=== PATIENT | female | born 1930 | race Caucasian/White ===

== ENCOUNTER 2016-10-04 12:44 | Inpatient (IN) ==
--- NOTE | 2016-10-04 13:10 | Emergency Department Note ---
SOB HPI - General Chief Complaint: Shortness of Breath/Dyspnea Stated Complaint: Shortness of breath, Tremors Time Seen by Provider: 10/04/16 12:56 Source: patient, other Mode of arrival: wheelchair Limitations: physical limitation, other - History of Present Illness This patient feels short of breath and hurts all over. Her Parkinson's also is a little bit more active than usual. - Related Data Home Medications Medication Instructions Recorded Confirmed Aspirin [Adult Low Dose Aspirin EC] 81 mg PO DAILY 03/05/15 06/24/16 Atenolol [Tenormin] 25 mg PO DAILY 03/05/15 06/24/16 Carbidopa/Levodopa [Sinemet 2 tab PO TID 03/05/15 06/24/16 25100] Co Q-10 300 mg PO DAILY 03/05/15 03/05/15 Gabapentin [Neurontin] 600 mg PO TID 03/05/15 06/24/16 Losartan [Cozaar] 50 mg PO DAILY 03/05/15 06/24/16 Primidone [Mysoline] 100 mg PO BID 03/05/15 06/24/16 rOPINIRole [Requip] 0.25 mg PO TID 03/05/15 06/24/16 Omeprazole 20 mg PO DAILY 06/24/16 06/24/16 Previous Rx's Medication Instructions Recorded Acetaminophen [Tylenol] 650 mg PO TID #180 tablet 03/05/15 Clindamycin HCl [Cleocin] 300 mg PO TID #21 capsule 06/24/16 Allergies Allergy/AdvReac Type Severity Reaction Status Date / Time Penicillins [PENICILLINS] Allergy Unknown HIVES Verified 10/04/16 12:58 Review of Systems Constitutional: Denies: fever Eyes: Denies: eye pain ENT ED: Denies: ear pain Cardiovascular: Reports: chest pain Respiratory: Reports: cough, dyspnea Gastrointestinal: Reports: abdominal pain. Denies: nausea Genitourinary: Denies: urgency Musculoskeletal: Reports: back pain Integumentary: Denies: rash Neurological: Reports: headache Past Medical History - Past Medical History Medical history: Reports: arthritis, coronary artery disease, diabetes, GERD, hyperlipidemia, hypertension, other (Parkinson's disease) Surgical history ED: Reports: hip replacement - Social History Alcohol use: Reports: None Physical Exam - General Limitations: physical limitation, other General appearance: alert - Head Head exam: atraumatic - Eye Eye exam: Present: normal appearance - ENT ENT exam: normal exam - Neck Neck exam: Present: normal inspection - Chest Chest inspection: Present: normal inspection - Respiratory Respiratory exam: Present: normal lung sounds bilaterally - Cardiovascular Cardiovascular exam: Present: regular rate, normal rhythm, normal heart sounds - Abdominal Exam Abdominal exam: Present: soft. Absent: distention, tenderness - Rectal Exam Rectal exam: Present: deferred - Neurological Exam Neurological exam: Present: alert - Psychiatric Psychiatric exam: Present: normal affect - Skin Skin exam: Present: warm, dry Course Vital Signs Temperature 97.1 F L 10/04/16 12:53 Pulse Rate 79 10/04/16 12:53 Respiratory Rate 24 10/04/16 12:53 Blood Pressure 132/95 10/04/16 12:53 Pulse Oximetry (%) 93 10/04/16 12:53 Temperature 97.1 F L 10/04/16 12:53 Pulse Rate 66 10/04/16 15:29 Respiratory Rate 20 10/04/16 13:12 Blood Pressure 154/80 10/04/16 15:29 Pulse Oximetry (%) 98 10/04/16 15:29 Shortness of Breath/Dyspnea - Lab Data Lab results reviewed: Yes I reviewed the patient's lab results. Result diagrams: 10/04/16 13:23 10/04/16 13:23 Lab Results 10/04/16 10/04/16 10/04/16 Range/Units 13:23 13:23 13:23 WBC 13.9 H (4.5-11.0) K/mcL RBC 4.02 (4.00-5.20) M/mcL Hgb 9.5 L (12.0-15.0) g/dL Hct 31.9 L (36.0-48.0) % MCV 79.4 L (80.0-100.0) fL MCH 23.6 L (26.0-34.0) pg MCHC 29.8 L (31.0-36.0) g/dL RDW 21.1 H (11.5-14.5) % Plt Count 423 (140-440) K/mcL MPV 7.6 (7.4-10.4) fL Gran % 84.6 H (38.0-78.0) % Lymph % (Auto) 9.7 L (15.5-49.0) % Pacific % (Auto) 4.3 (1.0-9.0) % Eos % (Auto) 1.2 (0.0-7.0) % Baso % (Auto) 0.2 (0.0-2.0) % Gran # 11.8 H (1.8-8.0) K/mcL Lymph # 1.3 L (1.5-4.8) K/mcL Pacific # 0.6 (0.1-0.9) K/mcL Eos # 0.2 (0.0-0.7) K/mcL Baso # 0 (0.0-0.3) K/mcL VBG Lactic Acid (0.5-2.2) mmol/L Sodium 137 (133-145) mmol/L Potassium 5.2 H (3.3-5.1) mmol/L Chloride 98 (96-108) mmol/L Carbon Dioxide 24 (22-30) mmol/L Anion Gap 15.0 (8-16) BUN 17 (8-23) mg/dl Creatinine 0.8 (0.6-1.1) mg/dl GFR Calculation 67 Glucose 177 H (70-105) mg/dL Calcium 8.3 L (8.6-10.4) mg/dl Total Bilirubin 0.5 (0.0-1.0) mg/dL AST 14 (0-37) U/l ALT < 5 (0-40) U/l Alkaline Phosphatase 84 (39-117) U/L Troponin T < 0.01 (0-0.03) ng/ml NT-Pro-B Natriuret Pep 5707.0 H (0-450) pg/ml Total Protein 6.0 (5.9-8.4) gm/dL Albumin 3.3 (3.2-5.2) gm/dL Globulin 2.7 (2.2-3.7) gm/dL Albumin/Globulin Ratio 1.2 (1.0-2.3) Urine Color Urine Appearance Urine pH (5.0-9.0) Ur Specific Anthony (1.000-1.035) Urine Protein (<25) mg/dL Urine Glucose (UA) (NORM) mg/dL Urine Ketones mg/dL Urine Occult Blood (<5) vero/mcL Urine Nitrate (NEG) Urine Bilirubin (NEG) mg/dL Urine Urobilinogen (NORM) mg/dL Ur Leukocyte Esterase (NEG) /mcL Urine RBC (0-1) /hpf Urine WBC (0-4) /hpf Ur Squamous Epith Cells (0-4) /hpf Ur Transition Epith Cell (0-2) /hpf Urine Bacteria (0) /hpf Ur Culture Indicated? 10/04/16 10/04/16 Range/Units 14:44 14:58 WBC (4.5-11.0) K/mcL RBC (4.00-5.20) M/mcL Hgb (12.0-15.0) g/dL Hct (36.0-48.0) % MCV (80.0-100.0) fL MCH (26.0-34.0) pg MCHC (31.0-36.0) g/dL RDW (11.5-14.5) % Plt Count (140-440) K/mcL MPV (7.4-10.4) fL Gran % (38.0-78.0) % Lymph % (Auto) (15.5-49.0) % Pacific % (Auto) (1.0-9.0) % Eos % (Auto) (0.0-7.0) % Baso % (Auto) (0.0-2.0) % Gran # (1.8-8.0) K/mcL Lymph # (1.5-4.8) K/mcL Pacific # (0.1-0.9) K/mcL Eos # (0.0-0.7) K/mcL Baso # (0.0-0.3) K/mcL VBG Lactic Acid 1.5 (0.5-2.2) mmol/L Sodium (133-145) mmol/L Potassium (3.3-5.1) mmol/L Chloride (96-108) mmol/L Carbon Dioxide (22-30) mmol/L Anion Gap (8-16) BUN (8-23) mg/dl Creatinine (0.6-1.1) mg/dl GFR Calculation Glucose (70-105) mg/dL Calcium (8.6-10.4) mg/dl Total Bilirubin (0.0-1.0) mg/dL AST (0-37) U/l ALT (0-40) U/l Alkaline Phosphatase (39-117) U/L Troponin T (0-0.03) ng/ml NT-Pro-B Natriuret Pep (0-450) pg/ml Total Protein (5.9-8.4) gm/dL Albumin (3.2-5.2) gm/dL Globulin (2.2-3.7) gm/dL Albumin/Globulin Ratio (1.0-2.3) Urine Color Yellow Urine Appearance Clear Urine pH 5.0 (5.0-9.0) Ur Specific Anthony 1.025 (1.000-1.035) Urine Protein Trace (<25) mg/dL Urine Glucose (UA) Norm (NORM) mg/dL Urine Ketones Neg mg/dL Urine Occult Blood 250 A (<5) vero/mcL Urine Nitrate Neg (NEG) Urine Bilirubin Neg (NEG) mg/dL Urine Urobilinogen Norm (NORM) mg/dL Ur Leukocyte Esterase Neg (NEG) /mcL Urine RBC > 182 H (0-1) /hpf Urine WBC 31 H (0-4) /hpf Ur Squamous Epith Cells 3 (0-4) /hpf Ur Transition Epith Cell 3 H (0-2) /hpf Urine Bacteria Mod A (0) /hpf Ur Culture Indicated? Yes - Radiology Data Radiology results reviewed: Yes I reviewed the patient's radiology results. ( chest x-ray shows pneumonia) Disposition Clinical Impression: Community acquired pneumonia, Urinary tract infection after immobility Disposition: Xfer As Inpt ([facility]) Condition: Good Referrals: Malu Werner MD [Primary Care Provider] - Time of Disposition: 15:57
[2016-10-04 13:57] LABS: Basophils # (Auto) 0 K/mcL (0.0-0.3); Basophils % (Auto) 0.2 % (0.0-2.0); Eosinophils # (Auto) 0.2 K/mcL (0.0-0.7); Eosinophils % (Auto) 1.2 % (0.0-7.0); Granulocytes % (Auto) 84.6 % (38.0-78.0); Lymphocytes # (Auto) 1.3 K/mcL (1.5-4.8); Lymphocytes % (Auto) 9.7 % (15.5-49.0); Mean Cell Volume 79.4 fL (80.0-100.0); Mean Corpuscular HGB Conc 29.8 g/dL (31.0-36.0); Mean Corpuscular Hemoglobin 23.6 pg (26.0-34.0); Monocytes # (Auto) 0.6 K/mcL (0.1-0.9); Monocytes % (Auto) 4.3 % (1.0-9.0); Platelet Count 423 K/mcL (140-440); RBC 4.02 M/mcL (4.00-5.20); Red Cell Distribution Width 21.1 % (11.5-14.5)
[2016-10-04 14:25] LABS: ALT/SGPT < 5 U/l (0-40); Albumin 3.3 gm/dL (3.2-5.2); Albumin/Globulin Ratio 1.2 (1.0-2.3); Alkaline Phosphatase 84 U/L (39-117); Blood Urea Nitrogen 17 mg/dl (8-23)
[2016-10-04] MEDS ORDERED: LEVOFLOXACIN 500 MG/100 ML BAG IV ONE (14:50)
[2016-10-04] MEDS ORDERED: cefTRIAXone 1 GM in DEXTROSE 5% IN WATER 50 ML IV ONE (14:50)
[2016-10-04] MEDS ORDERED: 0.9 % SODIUM CHLORIDE 1,000 ML IV ONE ×2 (14:58→19:07)
[2016-10-04 15:14] LABS: Appearance,Urine CLEAR; Bilirubin,Urine NEG (NEG); Color,Urine YELLOW; Glucose,Urine (UA) NORM (NORM); Leukocyte Esterase,Urine NEG /mcL (NEG); Nitrate,Urine NEG (NEG); Protein,Urine TRACE mg/dL (<25); Specific Gravity,Urine 1.025 (1.000-1.035); Urine Blood 250 ery/mcL (<5); Urobilinogen,Urine NORM (NORM)
[2016-10-04 15:19] LABS: Bacteria,Urine MOD /hpf (0); Urine RBC > 182 /hpf (0-1); Urine Squamous Epithelial Cell 3 /hpf (0-4); Urine Transitional Epi Cells 3 /hpf (0-2); Urine WBC 31 /hpf (0-4)
--- NOTE | 2016-10-04 17:33 | XRay Report ---
CLINICAL INFORMATION: Shortness of breath COMPARISON: None. FINDINGS: The heart is mildly enlarged: accentuated by leftward rotation and lordotic positioning. Mediastinum and pulmonary vessels are normal. Moderate size left and small to moderate right basilar infiltrates and effusions are appreciated. IMPRESSION: Moderate left and [id number] right basilar infiltrates and effusions. Suspect aspiration Interpreted and Authenticated by: Miguel Angel Rico 10/04/16
[2016-10-04] MEDS ORDERED: IPRATROPIUM/ALBUTEROL 3 ML AMPUL.NEB NEB PRN (17:38)
[2016-10-04] MEDS ORDERED: POTASSIUM CHLORIDE 20 MEQ PACKET PO PRN (17:38)
[2016-10-04] MEDS ORDERED: ONDANSETRON 4 MG/2 ML VIAL IV PRN (17:38)
[2016-10-04] MEDS ORDERED: ACETAMINOPHEN 325 MG TABLET PO PRN (17:38)
[2016-10-04] MEDS ORDERED: ACETAMINOPHEN 1,000 MG/100 ML BOTTLE IV PRN (17:38)
[2016-10-04] MEDS ORDERED: MAGNESIUM SULFATE 2 GM/50 ML BAG IV PRN (17:38)
[2016-10-04] MEDS ORDERED: VANCOMYCIN PER PHARMACY IV ONE (17:38)
[2016-10-04] MEDS ORDERED: CARBIDOPA/LEVODOPA CR 50/200 TABLET PO SCH (17:45)
--- NOTE | 2016-10-04 19:20 | History and Physical Report ---
DATE OF ADMISSION: 10/04/2016 DATE OF ADMISSION: 10/04/2016 REASON FOR ADMISSION: Weakness, shaking chills, shortness of breath. HISTORY OF CHIEF COMPLAINT: Wendy is an 86-year-old with known history of Parkinson's disease who resides at [facility] who comes to [facility] Emergency Room with above symptoms that started roughly 24 hours prior to presentation. The patient has been gradually getting weaker; however, last night, she was unable to eat and was discovered by staff with significant shaking, fatigue, lethargy, and change in baseline status. She was subsequently transferred to [facility] ER. Initial workup was significant for severe sepsis with white count of 13.9 along with bilateral chest infiltrates and pyuria. Hospitalist service was consulted. At the time of examination, the patient is on 4 liters of oxygen, fairly labored breathing. She appears very anxious and distressed with intentional tremors. She, however, denies abdominal pain, diarrhea, or dysuria. She does endorse to recent right lower extremity angioplasty performed by Dr. Shashi Frazier 2 days ago for nonhealing right lower extremity wound. She also endorses to sacral decubitus ulceration that has been managed with wound care. Other than that, she endorses to bilateral lower extremity lymphedema. She denies headache, drenching sweats. She endorses shaking chills. She denies photophobia, neck stiffness. Endorses to productive sputum. She denies recent choking episodes. She is up to date on vaccines. She sees primary care physician Malu Werner. REVIEW OF SYSTEMS: Ten-point review of system was performed and negative except the ones discussed above. PAST MEDICAL HISTORY: 1. Advanced Parkinson's disease. 2. GERD. 3. Peripheral vascular disease. 4. Nonhealing lower extremity ulceration previously managed by wound care, status post angioplasty. 5. Hypertension. 6. Coronary artery disease. CURRENT MEDICATIONS: Ropinirole 0.25 three times a day. Primidone 100 mg twice daily. Pantoprazole 40 at bedtime. Gabapentin 600 three times a day. Plavix 75 daily. Aspirin 81 daily. Levodopa/carbidopa 1 tab 4 times a day. Cipro 500 mg twice daily. ALLERGIES: PENICILLIN. SOCIAL HISTORY: The patient resides at [place]. Her daughter lives in [place]. One son, Raffaele, lives in [place]. She is a retired ICU nurse. Remote history of smoking but quit a long time ago. No history of alcohol or substance abuse. FAMILY HISTORY: Significant for sister with diabetes and dementia, one aunt with cancer, hypertension in sister and son. PHYSICAL EXAMINATION: GENERAL: The patient is in a fair amount of distress. BMI 28, height 5 feet 3 inches. VITAL SIGNS: Blood pressure 140/80, respiration rate 24, temperature 97.1, pulse 75, saturation 94 percent on 3 liters of oxygen. HEENT: Pupils symmetric. Oral cavity dry. No ear or nose discharge. Head is normocephalic and atraumatic. NECK: No lymphadenopathy. CHEST: S1, S2 regular rhythm. ESM grade 1. Diminished breath sounds at bases. ABDOMEN: Soft. LOWER EXTREMITIES: Right lower extremity schaeffer nonhealing ulcer wrapped in sterile dressing, bilateral lower extremity lymphedema with excoriation and oozing, decubitus ulcer 2 x 2 cm on the left gluteal area. PSYCH: Anxious but cooperative. NEUROLOGIC: Moving all 4 extremities. Resting tremor. LABS AND IMAGING: White count 13.9, hemoglobin 9.5, neutrophils 85 percent. Lactic acid 1.5, sodium 137, potassium 5.2, creatinine 0.5, BUN 17, BNP 5707. UA: Pyuria along with bacteriuria. Cultures pending. X-ray chest: Bilateral lower lobe infiltrate/effusion. EKG appears sinus, multiple artifacts secondary to resting tremor from Parkinson's. ASSESSMENT AND PLAN: An 86-year-old admitted with bilateral pneumonia, likely nosocomial, along with complicated urinary tract infection and sepsis. 1. Nosocomial pneumonia. Start patient on antibiotic coverage, including cefepime and vancomycin. CURB 65 score 3. 2. Hypoxic respiratory insufficiency secondary to nosocomial pneumonia. Continue supplemental oxygen and noninvasive ventilation if needed. 3. Severe sepsis by criteria. Will be managed as per guidelines with crystalloids, broad antibiotics, pancultures, and close hemodynamic monitoring. 4. Complicated urinary tract infection. Continue antibiotic coverage. Renal ultrasound to rule out obstructive uropathy. Await culture sensitivities. 5. Prior medical issues include history of Parkinson's disease, continue levodopa/carbidopa along with primidone; history of hypertension, continue atenolol; peripheral vascular disease, status post stenting, continue aspirin and Plavix; lower extremity wounds along with decubitus ulcer, continue wound care along with ux specialist consultation. 6. Prophylaxis will be on heparin. PLAN FOR TODAY: 1. Admit in inpatient telemetry. 2. Antibiotic coverage. 3. Noninvasive ventilation if worsening respiratory status. The patient is FULL CODE. 4. Renal ultrasound. 5. Wound care consult. Total time spent on history and physical in excess of 70 minutes. The patient will require a minimum of 2 midnights given hypoxic respiratory insufficiency, sepsis, complicated UTI. AA:xin Job ID: [id number] Doc ID: [id number] Raymon Werner MD [facility]
[2016-10-04] MEDS ORDERED: ONDANSETRON 4 MG/2 ML VIAL ONE (19:29)
[2016-10-04 19:45] LABS: Strep Pneumoniae Antigen - UR NEGATIVE (NEGATIVE)
[2016-10-04] MEDS ORDERED: HYDROmorphone 2 MG/ML SYRINGE ONE (20:12)
[2016-10-04] MEDS: GABAPENTIN 300 MG CAPSULE PO SCH (20:56)
[2016-10-04] MEDS: SENNOSIDES/DOCUSATE SODIUM 1 TAB TABLET PO SCH (20:56)
[2016-10-04] MEDS: DOCUSATE SODIUM 100 MG CAPSULE PO SCH (20:56)
[2016-10-04] MEDS: HEPARIN 5,000 UNIT/ML VIAL SQ SCH (20:56)
[2016-10-04] MEDS: rOPINIRole 0.25 MG TABLET PO SCH (20:56)
[2016-10-04] MEDS: PRIMIDONE 50 MG TABLET PO SCH (20:57)
[2016-10-04] MEDS ORDERED: LEVOFLOXACIN 250 MG/50 ML BAG IV ONE (21:00)
[2016-10-04] MEDS ORDERED: PRIMIDONE 50 MG TABLET PO SCH (21:00)
[2016-10-04] MEDS ORDERED: VANCOMYCIN 500 MG VIAL ONE (21:11)
[2016-10-04] MEDS: CEFEPIME 2 GM in DEXTROSE 5% IN WATER 50 ML IV SCH (21:19)
[2016-10-04] MEDS: VANCOMYCIN 1,000 MG in 0.9 % SODIUM CHLORIDE 250 ML IV SCH (21:34)
[2016-10-05] MEDS: HYDROmorphone 2 MG/ML SYRINGE IV PRN ×2 (00:17→06:54)
[2016-10-05] MEDS: 0.9 % SODIUM CHLORIDE 10 ML SYRINGE IV SCH ×4 (00:19→20:25)
[2016-10-05] MEDS: traZODone HCL 50 MG TABLET PO PRN ×2 (01:50→20:24)
[2016-10-05 07:30] LABS: Mean Cell Volume 79.3 fL (80.0-100.0); Mean Corpuscular Hemoglobin 23.8 pg (26.0-34.0); Platelet Count 402 K/mcL (140-440); RBC 3.95 M/mcL (4.00-5.20); Red Cell Distribution Width 21.1 % (11.5-14.5)
[2016-10-05] MEDS: 0.9 % SODIUM CHLORIDE 1,000 ML IV SCH (07:30)
[2016-10-05 07:50] LABS: ALT/SGPT 6 U/l (0-40); Albumin 3.1 gm/dL (3.2-5.2); Albumin/Globulin Ratio 1.1 (1.0-2.3); Alkaline Phosphatase 80 U/L (39-117); Bilirubin,Direct < 0.2 mg/dL (0.0-0.3); Blood Urea Nitrogen 14 mg/dl (8-23); Gamma Glutamyl Transpeptidase 46 U/L (5-36); Phosphorous 3.2 mg/dL (2.7-4.5); Uric Acid 4.5 mg/dL (2.5-8.0)
[2016-10-05] MEDS ORDERED: CARBIDOPA/LEVODOPA CR 25/100 TABLET PO PRN (07:58)
[2016-10-05] MEDS: HEPARIN 5,000 UNIT/ML VIAL SQ SCH ×2 (09:10→20:23)
[2016-10-05] MEDS: CLOPIDOGREL 75 MG TABLET PO SCH (09:13)
[2016-10-05] MEDS: PRIMIDONE 50 MG TABLET PO SCH ×2 (09:14→20:23)
[2016-10-05] MEDS: PANTOPRAZOLE 40 MG TABLET PO SCH (09:14)
[2016-10-05] MEDS: GABAPENTIN 300 MG CAPSULE PO SCH ×2 (09:14→20:24)
[2016-10-05] MEDS: ATENOLOL 50 MG TABLET PO SCH (09:14)
[2016-10-05] MEDS: ASPIRIN 81 MG TAB.CHEW PO SCH (09:14)
[2016-10-05] MEDS: DOCUSATE SODIUM 100 MG CAPSULE PO SCH ×2 (09:14→20:23)
[2016-10-05] MEDS: rOPINIRole 0.25 MG TABLET PO SCH ×3 (09:24→20:24)
[2016-10-05 09:31] LABS: Acanthocytes 1+ (NONE SEEN); Anisocytosis 2+ (NONE SEEN); Band Neutrophils % 1 % (0-10); Hypochromasia 1+ (NONE SEEN); Lymphocytes % 12 % (15-49); Monocytes % (Manual) 5 % (1-9); Platelet Estimate NORMAL (NORMAL); RBC Morphology ABNORM (NORMAL); Segmented Neutrophils % 82 % (38-78)
--- NOTE | 2016-10-05 10:53 | Ultrasound Report ---
History: Obstructive uropathy Findings: The right kidney measures 4.7 x 4.9 x 9.9 cm and the left kidney measures 4.1 x 4.4 x 10.0 cm. There is a cortical cyst located inferiorly and laterally in the lower pole of the right kidney. It measures 1.7 x 2.5 x 2.8 cm. No mass, calculus or hydronephrosis are present in either kidney. Except for the cyst in the right kidney, the cortex is normal in thickness and echogenicity bilaterally. The urinary bladder is decompressed by Matos catheter. Therefore we are unable to evaluate for flow of urine through the ureters into the bladder. Moderate size bilateral layering pleural effusions are present. Impression: Cyst in the lower pole of the right kidney. The kidneys are otherwise normal. Bilateral pleural effusions Interpreted and Authenticated by: Tobi Nava 10/05/16
[2016-10-05] MEDS: VANCOMYCIN 1,000 MG in 0.9 % SODIUM CHLORIDE 250 ML IV SCH (13:30)
[2016-10-05] MEDS: CARBIDOPA PO SCH ×3 (13:33→20:25)
[2016-10-05] MEDS: ENTACAPONE 200 MG PO SCH ×3 (13:33→20:25)
[2016-10-05] MEDS: LEVODOPA PO SCH ×3 (13:33→20:25)
[2016-10-05] MEDS: CEFEPIME 2 GM in DEXTROSE 5% IN WATER 50 ML IV SCH (15:00)
--- NOTE | 2016-10-05 16:52 | Internal Med Progress Note ---
Medical - PN: Subj Patient information: Note initiated : 10/05/16 at 4:50 pm Service Date, if different from initiated Date: [] Patient: Wendy Nicole 86 y/o F admitted on 10/04/16 for SOB, Tremors/ Bilateral Pneumonia, UTI, Sepsis. Chief Complaint: [] Interval history: 10/04- patient admitted with severe sepsis/hypoxic respiratory failure aspiration versus nosocomial pneumonia and complicated UTI. critically ill. Admitted to ICU. Hyperkalemia. Advanced Parkinson's disease. halfway resident. [place] II score on admit 18 10/05- extended family conference with family. patient clinically improved. On 4 L oxygen. Bilateral pleural effusion. renal ultrasound negative. continue antibiotic coverage/aspiration precaution. keep nothing by mouth until ST eval. overnight very anxious restless and unable to sleep. No telemetry events. Stable hemodynamics. - Constitutional Vitals: Vital Signs Temp Pulse Resp BP Pulse Ox 98.9 F 70 20 136/55 93 10/05/16 16:00 10/05/16 07:49 10/05/16 16:00 10/05/16 16:00 10/05/16 16:00 Period Temp Pulse Resp BP Sys/Black Pulse Ox Last 24 Hr 96.9 F-98.9 F 68-80 16-44 128-185/47-89 91-98 Intake and Output 10/05/16 10/05/16 10/05/16 05:59 13:59 21:59 Intake Total 300 / 300 300 / 300 Output Total 650 / 650 450 / 450 Balance -650 / -650 300 / 300 -150 / -150 Weight 179 lb 8 oz Patient Weight 10/06/16 05:59 Weight 179 lb 8 oz Intake & Output: Intake & Output 10/05/16 10/05/16 10/05/16 05:59 13:59 21:59 Intake Total 300 / 300 300 / 300 Output Total 650 / 650 450 / 450 Balance -650 / -650 300 / 300 -150 / -150 Weight 179 lb 8 oz Intake: IV 300 / 300 300 / 300 Sodium Chloride 0.9% 1, 300 / 300 0 / 0 000 ml @ 50 mls/hr IV . Q20H NADIYA Rx#:[id number] Dextrose 5% in Water 50 50 / 50 ml @ 100 mls/hr IV DAILY NADIYA with Maxipime 2 gm Rx #:[id number] Sodium Chloride 0.9% 250 250 / 250 ml @ 250 mls/hr IV DAILY NADIYA with Vancomycin 1,000 mg Rx#:[id number] Output: Urine Catheter Amount 650 / 650 450 / 450 Other: # Bowel Movements 0 General appearance: cooperative, no acute distress Exam: resting tremor improved anxiety Nonlabored breathing Lower extremity ulceration ecubitus ulcer Medical - PN: Obj Da - Labs CBC & Chem 7: 10/05/16 06:25 10/05/16 06:25 Labs: Abnormal Lab Results 10/05/16 10/05/16 06:25 06:25 RBC 3.95 L Hgb 9.4 L Hct 31.3 L MCV 79.3 L MCH 23.8 L MCHC 30.0 L RDW 21.1 H Seg Neutrophils % 82 H Lymphocytes % 12 L RBC Morphology Abnorm A Hypochromasia 1+ A Anisocytosis 2+ A Microcytosis 1+ A Acanthocytes (Spur) 1+ A RBC Fragments Occ A Glucose 140 H Calcium 7.9 L GGT 46 H Total Protein 5.8 L Albumin 3.1 L Meds: Medications Acetaminophen (Tylenol) 650 mg PO Q4-6HP PRN PRN Reason: PAIN/FEVER > 101 Albuterol/Ipratropium (Duoneb) 3 ml NEB Q4HP PRN PRN Reason: Shortness Of Breath Last Admin: 10/05/16 07:42 Dose: 3 ml Aspirin (Aspirin) 81 mg PO DAILY [facility] Last Admin: 10/05/16 09:14 Dose: 81 mg Atenolol (Tenormin) 25 mg PO DAILY [facility] Last Admin: 10/05/16 09:14 Dose: 25 mg Clopidogrel Bisulfate (Plavix) 75 mg PO DAILY [facility] Last Admin: 10/05/16 09:13 Dose: 75 mg Docusate Sodium (Colace) 100 mg PO BID [facility] Last Admin: 10/05/16 09:14 Dose: 100 mg Gabapentin (Neurontin) 600 mg PO BID [facility] Last Admin: 10/05/16 09:14 Dose: 600 mg Heparin Sodium (Porcine) (Heparin) 5,000 unit SQ Q12 [facility] Last Admin: 10/05/16 09:10 Dose: 5,000 unit Hydromorphone HCl (Dilaudid) 0.5 mg IV Q4HP PRN PRN Reason: Pain Last Admin: 10/05/16 06:54 Dose: 0.5 mg Levofloxacin (Levaquin) 750 mg in 150 mls @ 100 mls/hr IV Q48H [facility] Magnesium Sulfate (Magnesium Sulfate) 2 gm in 50 mls @ 50 mls/hr IV UD PRN PRN Reason: MG = or < 1.7 Acetaminophen (Ofirmev) 1,000 mg in 100 mls @ 200 mls/hr IV Q6HP PRN PRN Reason: PAIN/FEVER > 101 Last Infusion: 10/04/16 20:50 Dose: Infused Cefepime HCl 2 gm/ Dextrose 50 mls @ 100 mls/hr IV DAILY [facility] Last Infusion: 10/05/16 15:35 Dose: Infused Vancomycin HCl 1,000 mg/ (Sodium Chloride) 250 mls @ 250 mls/hr IV DAILY [facility] Last Infusion: 10/05/16 15:00 Dose: Infused Sodium Chloride (Sodium Chloride 0.9%) 1,000 mls @ 50 mls/hr IV .Q20H [facility] Last Infusion: 10/05/16 15:35 Dose: 50 mls/hr Stalevo (Carbidopa 50 Mg - Levodopa 200 Mg - Entacapone 200 Mg) Tablet 1 dose PO QID [facility] Last Admin: 10/05/16 13:33 Dose: 1 dose Ondansetron HCl (Zofran) 4 mg IV Q4-6HP PRN PRN Reason: Nausea And Vomiting Pantoprazole Sodium (Protonix) 40 mg PO QAMAC [facility] Last Admin: 10/05/16 09:14 Dose: 40 mg Pneumococcal Polyvalent Vaccine (Pneumovax 23) 0.5 ml IM .ONCE ONE Stop: 10/06/16 09:01 Potassium Chloride (Klor-Con) 40 meq PO DAILYP PRN PRN Reason: K+ < 3.5 Primidone (Mysoline) 100 mg PO BID [facility] Last Admin: 10/05/16 09:14 Dose: 100 mg Ropinirole HCl (Requip) 0.25 mg PO TID [facility] Last Admin: 10/05/16 16:01 Dose: 0.25 mg Senna/Docusate Sodium (Senna Plus Tablet) 1 tab PO HS [facility] Last Admin: 10/04/16 20:56 Dose: 1 tab Sodium Chloride (Saline Flush) 10 ml IV Q8 [facility] Last Admin: 10/05/16 13:30 Dose: 10 ml Trazodone HCl (Desyrel) 50 mg PO HSP PRN PRN Reason: Insomnia Last Admin: 10/05/16 01:50 Dose: 50 mg Medical - PN: A/P - Time Spent With Patient Total time spent is greater than 50% in coordination of care (as documented) at patient's floor/unit and/or counseling patient: 25 - 35 minutes (1) Aspiration pneumonia due to food (regurgitated) Status: Acute Assessment and plan: * Aspiration pneumonia-keep nothing by mouth. ST eval. Aspiration precautions. Antibiotic coverage for gram-negative/anaerobes * Hypoxic respiratory failure secondary to above-upplemental oxygen * Complicated UTI-continue antibiotic coverage. negative renal ultrasound * Severe sepsis secondary to cognition above-improving hemodynamics * mild hyperkalemia improved * bilateral pleural effusion. obtain echocardiogram to rule out cardiac etiology. Thoracentesis if worsening to rule out empyema/synpneumonic effusion * Advanced Parkinson's disease plan * Antibiotic coverage * supplemental oxygen * Speech eval/aspiration precautions * Sepsis management per guidelines * Antiparkinson's meds * iCU monitoring * echocardiogram Current Visit: Yes Medical - PN: Qual - VTE Deep Vein Thrombosis/Pulmonary Embolism Present on Admission: No
--- NOTE | 2016-10-05 19:50 | General Surgery Consult Note ---
History of Present Illness Patient information: Note initiated : 10/05/16 at 7:44 pm Service Date, if different from initiated Date: [] Patient: Wendy Nicole 86 y/o F admitted on 10/04/16 for SOB, Tremors/ Bilateral Pneumonia, UTI, Sepsis. Chief Complaint: [] Consult date: 10/05/16 Reason for consult: other (wound care management.) Requesting physician: Raymon Whalen History of present illness: This is a patient who lives by herself at [facility] where all her day to day requirements are met. she is an established patient at the wound care center, for wounds lateral mid third right leg and sacral area Currently she is admitted to intensive care unit with aspiration pneumonia, severe anxiety with uncontrollable tremors of established Parkinson's disease. She has nonhealing wounds right lateral leg mid third. This is due to a trivial trauma resulting in skin abrasion and ulceration additionally she was noted to have a grade 1 and grade 2 sacral pressure ulcer as well. Ongoing acute medical problems are managed by the hospitalist physician. Medications and Allergies Home Medications Medication Instructions Recorded Confirmed Type Acetaminophen [Tylenol] 650 mg PO TID #180 tablet 03/05/15 10/04/16 Rx Aspirin [Adult Low Dose Aspirin EC] 81 mg PO DAILY 03/05/15 10/04/16 History Atenolol [Tenormin] 25 mg PO DAILY 03/05/15 10/04/16 History Gabapentin [Neurontin] 600 mg PO TID 03/05/15 10/04/16 History Primidone [Mysoline] 100 mg PO BID 03/05/15 10/04/16 History Ciprofloxacin [Cipro] 500 mg PO BID 10/04/16 10/04/16 History L.acidoph,Paracasei, B.lactis 1 each PO DAILY 10/04/16 10/04/16 History [Probiotic] Pantoprazole [Protonix] 40 mg PO HS 10/04/16 10/04/16 History Polyethylene Glycol 3350 [Miralax] 17 gm PO DAILYP PRN 10/04/16 10/05/16 History Clopidogrel Bisulfate [Plavix] 75 mg PO DAILY 10/05/16 10/05/16 History Stalevo (Carbidopa 50 Mg-Levodopa 1 tab PO QIDP 10/05/16 10/05/16 History 200 Mg-Entacapone 200 Mg) rOPINIRole HCL [Requip] 0.25 mg PO TID 10/05/16 10/05/16 History Allergies Allergy/AdvReac Type Severity Reaction Status Date / Time Penicillins [PENICILLINS] Allergy Unknown HIVES Verified 10/04/16 12:58 Exam Temp Pulse Resp BP Pulse Ox 98.9 F 70 20 136/55 93 10/05/16 16:00 10/05/16 07:49 10/05/16 16:00 10/05/16 16:00 10/05/16 16:00 - General physical appearance well developed, well nourished, moderate distress, moderate pain - Eyes PERRL, normal ocular movement, pale - ENT normal pinna, normal nares, normal mucosa, other (Edentolous. ) - Head Head exam IM: Present: atraumatic, normal inspection, normocephalic - Neck no masses, no bruits, trachea midline, no lymphadectomy, no venous distension - Cardiovascular Cardiovascular exam IM: Present: normal rate and rhythm - Respiratory other (Diminished air entry lung bases. Aspiration Pneumonia. ) - Abdomen Abdomen: Present: soft, non tender, bowel sounds - Genitourinary Present: normal external genitalia (Catheter / clear urine) - Integumentary Present: other (Skin wounds right lateral leg and Grade 1 Sacral skin and sub q wound ) - Neurologic Present: other (Symmetrical tremors both UE. Stuttered speech. ) Results - Labs 10/06/16 04:00 10/06/16 04:00 Abnormal lab results 10/05/16 10/05/16 Range/Units 06:25 06:25 RBC 3.95 L (4.00-5.20) M/mcL Hgb 9.4 L (12.0-15.0) g/dL Hct 31.3 L (36.0-48.0) % MCV 79.3 L (80.0-100.0) fL MCH 23.8 L (26.0-34.0) pg MCHC 30.0 L (31.0-36.0) g/dL RDW 21.1 H (11.5-14.5) % Seg Neutrophils % 82 H (38-78) % Lymphocytes % 12 L (15-49) % RBC Morphology Abnorm A (NORMAL) Hypochromasia 1+ A (NONE SEEN) Anisocytosis 2+ A (NONE SEEN) Microcytosis 1+ A (NONE SEEN) Acanthocytes (Spur) 1+ A (NONE SEEN) RBC Fragments Occ A (NONE SEEN) Glucose 140 H (70-105) mg/dL Calcium 7.9 L (8.6-10.4) mg/dl GGT 46 H (5-36) U/L Total Protein 5.8 L (5.9-8.4) gm/dL Albumin 3.1 L (3.2-5.2) gm/dL Diabetes panel 10/05/16 Range/Units 06:25 Sodium 136 (133-145) mmol/L Potassium 4.7 (3.3-5.1) mmol/L Chloride 97 (96-108) mmol/L Carbon Dioxide 24 (22-30) mmol/L BUN 14 (8-23) mg/dl Creatinine 0.7 (0.6-1.1) mg/dl Glucose 140 H (70-105) mg/dL Calcium 7.9 L (8.6-10.4) mg/dl AST 13 (0-37) U/l ALT 6 (0-40) U/l Alkaline Phosphatase 80 (39-117) U/L Total Protein 5.8 L (5.9-8.4) gm/dL Albumin 3.1 L (3.2-5.2) gm/dL Triglycerides 118 (<150) mg/dl Calcium panel 10/05/16 Range/Units 06:25 Calcium 7.9 L (8.6-10.4) mg/dl Phosphorus 3.2 (2.7-4.5) mg/dL Albumin 3.1 L (3.2-5.2) gm/dL Pituitary panel 10/05/16 Range/Units 06:25 Sodium 136 (133-145) mmol/L Potassium 4.7 (3.3-5.1) mmol/L Chloride 97 (96-108) mmol/L Carbon Dioxide 24 (22-30) mmol/L BUN 14 (8-23) mg/dl Creatinine 0.7 (0.6-1.1) mg/dl Glucose 140 H (70-105) mg/dL Calcium 7.9 L (8.6-10.4) mg/dl Adrenal panel 10/05/16 Range/Units 06:25 Sodium 136 (133-145) mmol/L Potassium 4.7 (3.3-5.1) mmol/L Chloride 97 (96-108) mmol/L Carbon Dioxide 24 (22-30) mmol/L BUN 14 (8-23) mg/dl Creatinine 0.7 (0.6-1.1) mg/dl Glucose 140 H (70-105) mg/dL Calcium 7.9 L (8.6-10.4) mg/dl Total Bilirubin 0.3 (0.0-1.0) mg/dL AST 13 (0-37) U/l ALT 6 (0-40) U/l Alkaline Phosphatase 80 (39-117) U/L Total Protein 5.8 L (5.9-8.4) gm/dL Albumin 3.1 L (3.2-5.2) gm/dL All other labs normal. Assessment and Plan (1) Pressure ulcer of sacral region, stage 1 Plan OFF loading , Protective dressing and Air loss mattress and change positions q 2 hrly Status: Chronic Priority: Low (2) Leg wound, right Plan : Continue ongoing wound care. Antibacterial ointment and protective dressings and off loading Status: Chronic Priority: Low Qualifiers: Encounter type: sequela Qualified Code(s): S81.801S - Unspecified open wound, right lower leg, sequela (3) Peripheral arterial occlusive disease Monitor progress. Supportive care for other comorbid conditions,. Status: Chronic Priority: Low
[2016-10-05] MEDS: SENNOSIDES/DOCUSATE SODIUM 1 TAB TABLET PO SCH (20:24)
[2016-10-06] MEDS: 0.9 % SODIUM CHLORIDE 10 ML SYRINGE IV SCH ×6 (04:07→21:32)
[2016-10-06] MEDS: 0.9 % SODIUM CHLORIDE 1,000 ML IV SCH (04:07)
[2016-10-06 05:01] LABS: ALT/SGPT < 5 U/l (0-40); Albumin 2.5 gm/dL (3.2-5.2); Albumin/Globulin Ratio 1.2 (1.0-2.3); Alkaline Phosphatase 64 U/L (39-117); Bilirubin,Direct < 0.2 mg/dL (0.0-0.3); Blood Urea Nitrogen 12 mg/dl (8-23); Gamma Glutamyl Transpeptidase 40 U/L (5-36); Magnesium 1.9 mg/dL (1.6-2.5); Mean Corpuscular HGB Conc 31.7 g/dL (31.0-36.0); Mean Corpuscular Hemoglobin 24.4 pg (26.0-34.0); Phosphorous 2.3 mg/dL (2.7-4.5); Platelet Count 319 K/mcL (140-440); Red Cell Distribution Width 19.9 % (11.5-14.5); Uric Acid 4.1 mg/dL (2.5-8.0)
[2016-10-06 05:50] LABS: Anisocytosis 2+ (NONE SEEN); Eosinophils % (Manual) 3 % (0-7); Hypochromasia 2+ (NONE SEEN); Lymphocytes % 17 % (15-49); Monocytes % (Manual) 10 % (1-9); Platelet Estimate NORMAL (NORMAL); RBC Morphology ABNORM (NORMAL); Segmented Neutrophils % 70 % (38-78)
[2016-10-06] MEDS: PANTOPRAZOLE 40 MG TABLET PO SCH (06:56)
--- NOTE | 2016-10-06 07:10 | Echocardiogram Report ---
ECHOCARDIOGRAM: 2-D and M-mode echocardiography with cardiac Doppler and color flow imaging were performed with a [employer]. Indication is congestive heart failure/? ejection fraction. Both atria appeared enlarged, the RA mildly so, the LA moderately so. RV and LV cavity size appeared normal as did LV wall thickness and systolic performance. Estimated ejection fraction is 60%. Aortic root diameter appeared normal. The aortic valve appeared trileaflet and normal for age. There was no evidence for aortic stenosis by Doppler interrogation. Aortic regurgitation, probably mild (1+), was demonstrated. The mitral and tricuspid valves appeared unremarkable. Mitral annular calcification was present. Doppler interrogation of LV inflow disclosed normal ''e'' wave dominant and normal early diastolic deceleration time. Mitral regurgitation, probably mild (1+) was noted. The pulmonic valve showed normal ''a'' wave amplitude. Pulmonary artery acceleration time appeared normal. There was no evidence for pulmonic stenosis. Pulmonic regurgitation, probably mild (1+), and tricuspid regurgitation, probably moderate (2+), were noted. No intracardiac shunting was appreciated. There was no evidence for pericardial effusion. The IVC was of normal diameter and showed normal respiratory variation. Calculated estimate of PA systolic pressure is moderately elevated at 45-50 mmHg. Sinus rhythm with PACs was present. CONCLUSION: Aortic regurgitation, probably mild (1+). Mitral annular calcification with mitral regurgitation, probably mild ( 1+), and moderate LA enlargement. Moderate pulmonary hypertension/mild RA enlargement. (See accompanying M-mode and Doppler reports for quantitation.) ECHOCARDIOGRAPHY M-MODE CALCULATIONS: HT: 67'' WT: 179 BSA: 1.93 m2 NORMALS AORTA: AORTIC ROOT 3.3 2.0-3.7 cm LEFT ATRIUM 4.8 1.9-4.0 cm MITRAL VALVE: EXCURSION 2.0 1.9-2.7 cm EPSS 0 <0.5 cm LT VENTRICLE: LVID (ED) 4.4 3.5-5.7 cm LVID (ES) 2.7 SEPTAL THICKNESS 1.2 0.6-1.1 cm SEPTAL EXCURSION 0.4 0.3-0.8 cm LVPW THICKNESS 1.2 0.6-1.1 cm LVPW EXCURSION 0.8 0.9-1.4 cm MINOR AXIS FS 3.9 25%-40% RT VENTRICLE: RVID (ED) -- 0.9-2.6 cm(up to 3cm if LLD) QUALITATIVE DOPPLER FLOW STUDIES MITRAL VALVE MR, probably mild (1+) AORTIC VALVE AR, probably mild (1+) TRICUSPID VALVE TR, probably moderate (2+) PULMONIC VALVE W[place], probably mild (1+) QUANTITATIVE DOPPLER FLOW STUDIES SAMPLE SITES VELOCITIES PEAK PRESSURE VALVE AREA and/or VALVE WINDOW (PEAK,M/SEC) DROP (GRADIENT) PRESSURE HALF-TIME MV (Diastole) 1.0 0.95 -- -- MV (Systole) 4.0 -- -- AO (Diastole) 3.5 -- -- AO (Systole) 1.6 -- -- TV (Systole) 3.3 -- -- PV (Systole) 0.85 -- -- PV (Diastole) 2.3 LWG:mitchel Job ID: [id number] Doc ID: [id number] Omar Mercado MD
--- NOTE | 2016-10-06 08:02 | XRay Report ---
HISTORY: Reason for Exam:Interval Change bibasilar infiltrates and pleural effusions FINDINGS: There is dense consolidation left lower lobe and around the left hilum. A milder alveolar infiltrate is present in the right lower lobe there are increased interstitial lung markings in the upper lobes. Patient has a moderate-sized left-sided pleural effusion and a small subpulmonic pleural effusion on the right. The heart is mildly enlarged. The pulmonary vessels appear gorged. Comparison with the prior exam from 10/04/16 shows increasing consolidation around the left hilum and no change of the basilar infiltrates. The pulmonary vascular congestion has also become worse in the upper lobes. IMPRESSION: Bilateral pneumonia or atelectasis with increasing consolidation around the left hilum Stable bilateral pleural effusions Cardiomegaly with pulmonary vascular congestion Interpreted and Authenticated by: Tobi Nava 10/06/16
[2016-10-06] MEDS: CEFEPIME 2 GM in DEXTROSE 5% IN WATER 50 ML IV SCH (08:20)
[2016-10-06] MEDS: HYDROmorphone 2 MG/ML SYRINGE IV PRN ×3 (08:55→21:57)
[2016-10-06] MEDS ORDERED: LEVOFLOXACIN 750 MG/150 ML BAG IV SCH (09:00)
[2016-10-06] MEDS ORDERED: PNEUMOCOCCAL 23-VAL P-SAC VAC 0.5 ML VIAL IM ONE (09:00)
[2016-10-06] MEDS: DOCUSATE SODIUM 100 MG CAPSULE PO SCH ×2 (09:24→21:31)
[2016-10-06] MEDS: PRIMIDONE 50 MG TABLET PO SCH ×2 (09:24→21:32)
[2016-10-06] MEDS: GABAPENTIN 300 MG CAPSULE PO SCH ×2 (09:25→21:30)
[2016-10-06] MEDS: CLOPIDOGREL 75 MG TABLET PO SCH (09:25)
[2016-10-06] MEDS: CARBIDOPA PO SCH ×4 (09:26→21:31)
[2016-10-06] MEDS: ENTACAPONE 200 MG PO SCH ×4 (09:26→21:31)
[2016-10-06] MEDS: LEVODOPA PO SCH ×4 (09:26→21:31)
[2016-10-06] MEDS: ATENOLOL 50 MG TABLET PO SCH (09:27)
[2016-10-06] MEDS: ASPIRIN 81 MG TAB.CHEW PO SCH (09:28)
[2016-10-06] MEDS: rOPINIRole 0.25 MG TABLET PO SCH ×3 (09:33→21:31)
--- NOTE | 2016-10-06 10:03 | Internal Med Progress Note ---
Medical - PN: Subj Patient information: Note initiated : 10/06/16 at 9:52 am Service Date, if different from initiated Date: [] Patient: Wendy Nicole 86 y/o F admitted on 10/04/16 for SOB, Tremors/ Bilateral Pneumonia, UTI, Sepsis. Chief Complaint: [] Interval history: 10/04- patient admitted with severe sepsis/hypoxic respiratory failure aspiration versus nosocomial pneumonia and complicated UTI. critically ill. Admitted to ICU. Hyperkalemia. Advanced Parkinson's disease. custodial resident. [place] II score on admit 18 10/05- extended family conference with family. patient clinically improved. On 4 L oxygen. Bilateral pleural effusion. renal ultrasound negative. continue antibiotic coverage/aspiration precaution. keep nothing by mouth until ST eval. overnight very anxious restless and unable to sleep. No telemetry events. Stable hemodynamics. 10/06- bilateral worsening aspiration pneumonia along with stable pleural effusions. Thoracentesis today. On antibiotic coverage advanced Parkinson's with silent aspiration. Diet as per ST recommendations to start in 24 hours. White count improved from 13.9-8.2. Potassium down to 4. rine cultures negative to date. renal ultrasound right renal cyst. No evidence of obstruction. Bilateral pleural effusion. Echocardiogram EF 50%. pulmonary artery pressure 50 fasting moderate pulmonary hypertension which would explain chronic lymphedema related nonhealing lower extremity ulcer. - Constitutional Vitals: Vital Signs Temp Pulse Resp BP Pulse Ox 98.2 F 65 16 125/54 95 10/06/16 07:55 10/06/16 04:00 10/06/16 07:55 10/06/16 07:55 10/06/16 07:55 Period Temp Pulse Resp BP Sys/Black Pulse Ox Last 24 Hr 97.1 F-98.9 F 62-65 16-22 117-152/45-76 93-99 Intake and Output 10/05/16 10/06/16 10/06/16 21:59 05:59 13:59 Intake Total 300 / 300 827 / 827 804 / 804 Output Total 450 / 450 400 / 400 300 / 300 Balance -150 / -150 427 / 427 504 / 504 Weight 173 lb 4.8 oz Intake & Output: Intake & Output 10/05/16 10/06/16 10/06/16 21:59 05:59 13:59 Intake Total 300 / 300 827 / 827 804 / 804 Output Total 450 / 450 400 / 400 300 / 300 Balance -150 / -150 427 / 427 504 / 504 Weight 173 lb 4.8 oz Intake: IV 300 / 300 627 / 627 284 / 284 Sodium Chloride 0.9% 1, 0 / 0 627 / 627 234 / 234 000 ml @ 50 mls/hr IV . Q20H NADIYA Rx#:[id number] Dextrose 5% in Water 50 50 / 50 50 / 50 ml @ 100 mls/hr IV DAILY NADIYA with Maxipime 2 gm Rx #:[id number] Sodium Chloride 0.9% 250 250 / 250 ml @ 250 mls/hr IV DAILY NADIYA with Vancomycin 1,000 mg Rx#:[id number] Oral 200 / 200 520 / 520 Output: Urine Catheter Amount 450 / 450 400 / 400 300 / 300 Other: Meal Breakfast Percent of Meal Consumed 100% Feeding Ability Total Assistance # Bowel Movements 0 General appearance: cooperative, no acute distress Exam: bilateral lower extremity lymphedema Foleys draining dark urine No anxiety Persistent resting tremor but improved since previous day alert oriented Medical - PN: Obj Da - Labs CBC & Chem 7: 10/06/16 04:00 10/06/16 04:00 Labs: Abnormal Lab Results 10/06/16 10/06/16 10/05/16 04:00 04:00 06:25 RBC 3.40 L Hgb 8.3 L Hct 26.2 L MCV 77.0 L MCH 24.4 L MCHC RDW 19.9 H Seg Neutrophils % Lymphocytes % Monocytes % (Manual) 10 H RBC Morphology Abnorm A Hypochromasia 2+ A Poikilocytosis 2+ A Anisocytosis 2+ A Microcytosis 1+ A Acanthocytes (Spur) RBC Fragments 1+ A Anion Gap 7.0 L Glucose 175 H 140 H Calcium 7.8 L 7.9 L Phosphorus 2.3 L GGT 40 H 46 H Total Protein 4.6 L 5.8 L Albumin 2.5 L 3.1 L Globulin 2.1 L 10/05/16 06:25 RBC 3.95 L Hgb 9.4 L Hct 31.3 L MCV 79.3 L MCH 23.8 L MCHC 30.0 L RDW 21.1 H Seg Neutrophils % 82 H Lymphocytes % 12 L Monocytes % (Manual) RBC Morphology Abnorm A Hypochromasia 1+ A Poikilocytosis Anisocytosis 2+ A Microcytosis 1+ A Acanthocytes (Spur) 1+ A RBC Fragments Occ A Anion Gap Glucose Calcium Phosphorus GGT Total Protein Albumin Globulin Meds: Medications Acetaminophen (Tylenol) 650 mg PO Q4-6HP PRN PRN Reason: PAIN/FEVER > 101 Albuterol/Ipratropium (Duoneb) 3 ml NEB Q4HP PRN PRN Reason: Shortness Of Breath Last Admin: 10/05/16 07:42 Dose: 3 ml Aspirin (Aspirin) 81 mg PO DAILY [facility] Last Admin: 10/06/16 09:28 Dose: 81 mg Atenolol (Tenormin) 25 mg PO DAILY [facility] Last Admin: 10/06/16 09:27 Dose: 25 mg Clopidogrel Bisulfate (Plavix) 75 mg PO DAILY [facility] Last Admin: 10/06/16 09:25 Dose: 75 mg Docusate Sodium (Colace) 100 mg PO BID [facility] Last Admin: 10/06/16 09:24 Dose: 100 mg Gabapentin (Neurontin) 600 mg PO BID [facility] Last Admin: 10/06/16 09:25 Dose: 600 mg Heparin Sodium (Porcine) (Heparin) 5,000 unit SQ Q12 [facility] Last Admin: 10/05/16 20:23 Dose: 5,000 unit Hydromorphone HCl (Dilaudid) 0.5 mg IV Q4HP PRN PRN Reason: Pain Last Admin: 10/06/16 08:55 Dose: 0.5 mg Levofloxacin (Levaquin) 750 mg in 150 mls @ 100 mls/hr IV Q48H [facility] Last Admin: 10/06/16 09:20 Dose: 100 mls/hr Magnesium Sulfate (Magnesium Sulfate) 2 gm in 50 mls @ 50 mls/hr IV UD PRN PRN Reason: MG = or < 1.7 Acetaminophen (Ofirmev) 1,000 mg in 100 mls @ 200 mls/hr IV Q6HP PRN PRN Reason: PAIN/FEVER > 101 Last Infusion: 10/04/16 20:50 Dose: Infused Cefepime HCl 2 gm/ Dextrose 50 mls @ 100 mls/hr IV DAILY [facility] Last Infusion: 10/06/16 08:54 Dose: Infused Vancomycin HCl 1,000 mg/ (Sodium Chloride) 250 mls @ 250 mls/hr IV DAILY [facility] Last Infusion: 10/05/16 15:00 Dose: Infused Sodium Chloride (Sodium Chloride 0.9%) 1,000 mls @ 50 mls/hr IV .Q20H [facility] Last Infusion: 10/06/16 09:23 Dose: 0 mls/hr Stalevo (Carbidopa 50 Mg - Levodopa 200 Mg - Entacapone 200 Mg) Tablet 1 dose PO QID [facility] Last Admin: 10/06/16 09:26 Dose: 1 dose Ondansetron HCl (Zofran) 4 mg IV Q4-6HP PRN PRN Reason: Nausea And Vomiting Pantoprazole Sodium (Protonix) 40 mg PO QAMAC [facility] Last Admin: 10/06/16 06:56 Dose: 40 mg Potassium Chloride (Klor-Con) 40 meq PO DAILYP PRN PRN Reason: K+ < 3.5 Primidone (Mysoline) 100 mg PO BID [facility] Last Admin: 10/06/16 09:24 Dose: 100 mg Ropinirole HCl (Requip) 0.25 mg PO TID [facility] Last Admin: 10/06/16 09:33 Dose: 0.25 mg Senna/Docusate Sodium (Senna Plus Tablet) 1 tab PO HS [facility] Last Admin: 10/05/16 20:24 Dose: 1 tab Sodium Chloride (Saline Flush) 10 ml IV Q8 [facility] Last Admin: 10/06/16 08:55 Dose: 10 ml Trazodone HCl (Desyrel) 50 mg PO HSP PRN PRN Reason: Insomnia Last Admin: 10/05/16 20:24 Dose: 50 mg Medical - PN: A/P - Time Spent With Patient Total time spent is greater than 50% in coordination of care (as documented) at patient's floor/unit and/or counseling patient: 25 - 35 minutes (1) Aspiration pneumonia due to food (regurgitated) Status: Acute Assessment and plan: * Aspiration pneumonia-linically worseningon imaging. iet as per ST recommendations. continue aspiration precautions. on ABX * Hypoxic respiratory failure secondary to above- On 4 L oxygen * Complicated UTI-continue antibiotic coverage. negative renal ultrasound * Severe sepsis secondary to cognition above-improving hemodynamics * mild hyperkalemia improved * bilateral pleural effusion. thoracentesis today. cho 50% EF/moderate pulmonary hypertension * moderate pulmonary hypertension-could bilateral lower extremity lymphedema/ lower extremity wound. Wound care on board * decubitus ulcer-managed by wound care * Advanced Parkinson's disease-on levodopa plan * Antibiotic coverage * pulmonary toilet/aspiration precautions * thoracentesis * diet per ST recommendations * Pleurectomy ulcer/sacral decubitus sore management per Dr. Brannon * continue antiparkinson's meds Current Visit: Yes Medical - PN: Qual - VTE Deep Vein Thrombosis/Pulmonary Embolism Present on Admission: No
[2016-10-06] MEDS ORDERED: HYDROmorphone 2 MG/ML SYRINGE IV ONE (10:15)
[2016-10-06] MEDS ORDERED: HYDROmorphone 2 MG/ML SYRINGE ONE (10:18)
[2016-10-06] MEDS ORDERED: ALBUTEROL SULFATE 2.5 MG/3 ML NEBULIZER NEB ONE (11:00)
[2016-10-06] MEDS: VANCOMYCIN 1,000 MG in 0.9 % SODIUM CHLORIDE 250 ML IV SCH (11:25)
--- NOTE | 2016-10-06 11:40 | General Surgery Progress Note ---
Subjective Patient reports: no new complaints, other (Patient seen with family members and JOSE RN in ICU. No interval changes. Wound care reviewed with Brisa BARRIOS IP Wound Nurse. ) Narrative: Note initiated : 10/06/16 at 11:37 am Service Date, if different from initiated Date: [] Patient: Wendy Nicole 86 y/o F admitted on 10/04/16 for SOB, Tremors/ Bilateral Pneumonia, UTI, Sepsis. Chief Complaint: [] Objective Temp Pulse Resp BP Pulse Ox 98.5 F 65 25 H 124/88 95 10/06/16 11:32 10/06/16 04:00 10/06/16 11:32 10/06/16 11:32 10/06/16 11:32 No fever. tachypnea with anxiety. Hemodynamically stable - Additional Data Intake & Output - Last 24 hours: Intake & Output 10/04/16 10/05/16 10/06/16 10/07/16 05:59 05:59 05:59 05:59 Intake Total 1200 / 2350 1427 / 1427 967 / 967 Output Total 1150 / 1150 850 / 850 300 / 300 Balance 50 / 1200 577 / 577 667 / 667 Weight 179 lb 8 oz 173 lb 4.8 oz - Labs 10/06/16 04:00 10/06/16 04:00 Diabetes panel 10/06/16 Range/Units 04:00 Sodium 137 (133-145) mmol/L Potassium 4.0 (3.3-5.1) mmol/L Chloride 104 (96-108) mmol/L Carbon Dioxide 26 (22-30) mmol/L BUN 12 (8-23) mg/dl Creatinine 0.6 (0.6-1.1) mg/dl Glucose 175 H (70-105) mg/dL Calcium 7.8 L (8.6-10.4) mg/dl AST 17 (0-37) U/l ALT < 5 (0-40) U/l Alkaline Phosphatase 64 (39-117) U/L Total Protein 4.6 L (5.9-8.4) gm/dL Albumin 2.5 L (3.2-5.2) gm/dL Triglycerides 147 (<150) mg/dl Calcium panel 10/06/16 Range/Units 04:00 Calcium 7.8 L (8.6-10.4) mg/dl Phosphorus 2.3 L (2.7-4.5) mg/dL Albumin 2.5 L (3.2-5.2) gm/dL Pituitary panel 10/06/16 Range/Units 04:00 Sodium 137 (133-145) mmol/L Potassium 4.0 (3.3-5.1) mmol/L Chloride 104 (96-108) mmol/L Carbon Dioxide 26 (22-30) mmol/L BUN 12 (8-23) mg/dl Creatinine 0.6 (0.6-1.1) mg/dl Glucose 175 H (70-105) mg/dL Calcium 7.8 L (8.6-10.4) mg/dl Adrenal panel 10/06/16 Range/Units 04:00 Sodium 137 (133-145) mmol/L Potassium 4.0 (3.3-5.1) mmol/L Chloride 104 (96-108) mmol/L Carbon Dioxide 26 (22-30) mmol/L BUN 12 (8-23) mg/dl Creatinine 0.6 (0.6-1.1) mg/dl Glucose 175 H (70-105) mg/dL Calcium 7.8 L (8.6-10.4) mg/dl Total Bilirubin 0.2 (0.0-1.0) mg/dL AST 17 (0-37) U/l ALT < 5 (0-40) U/l Alkaline Phosphatase 64 (39-117) U/L Total Protein 4.6 L (5.9-8.4) gm/dL Albumin 2.5 L (3.2-5.2) gm/dL Medical - PN: A/P - Time Spent With Patient Total time spent is greater than 50% in coordination of care (as documented) at patient's floor/unit and/or counseling patient: Pneumonia, UTI and pressure ulcer Right leg and Sacral area. Plan: Continue on going wound care. 15 - 24 minutes (1) Pressure ulcer of sacral region, stage 1 Status: Chronic Current Visit: Yes (2) Leg wound, right Status: Chronic Current Visit: Yes (3) Peripheral arterial occlusive disease Status: Chronic Current Visit: Yes
[2016-10-06] MEDS: HEPARIN 5,000 UNIT/ML VIAL SQ SCH ×2 (15:01→21:31)
--- NOTE | 2016-10-06 15:32 | XRay Report ---
HISTORY: Reason for Exam:POST LEFT-SIDED THORACENTESIS FINDINGS: There is no pneumothorax following the preceding left-sided thoracentesis. Most of the pleural fluid has been drained but there is still blunting of the costophrenic sulcus. The left lower lobe has partially reexpanded. There is a residual thick band of discoid atelectasis medially in the left lower lobe. Patient has persistent subpulmonic pleural effusion on the right with an alveolar infiltrate in the right lower lobe area the infiltrate has improved since 6:30 AM on same date. The heart is borderline enlarged but appears smaller now than it was previously. IMPRESSION: No complication following left-sided thoracentesis. The left lung is reexpanding. Interpreted and Authenticated by: Tobi Nava 10/06/16
--- NOTE | 2016-10-06 15:36 | Ultrasound Report ---
CLINICAL INFORMATION: Bilateral pleural effusions with dyspnea TECHNIQUE: The procedure and risks were explained and the patient consented. The largest fluid collection is in the left lower thorax. The skin over the left back was prepped with ChloraPrep then anesthetized with 1% lidocaine. Using ultrasound guidance a Yueh needle was inserted into the pleural space. 1.1 L of clear yellowish fluid was removed and sent to laboratory for analysis. Most but not all of fluid was drained. She tolerated the procedure well without complication. IMPRESSION: Successful left-sided thoracentesis removing 1.1 L Interpreted and Authenticated by: Tobi Nava 10/06/16
[2016-10-06 17:01] LABS: Glucose,Pleural Fluid 186 mg/dL
[2016-10-06 17:08] LABS: pH,Body Fluid 7.52
[2016-10-06 17:18] LABS: Cholesterol,Body Fluid 28 mg/dL; Total Protein,Pleural Fluid 1.5 gm/dL
[2016-10-06 19:02] LABS: Appearance,Pleural Fluid CLEAR; Color,Pleural Fluid P. YELLOW; Nucleated Cells,Pleural Fld 46 /cumm; RBC,Pleural Fluid < 50000 /cumm
[2016-10-06 19:06] LABS: Lymphocytes,Pleural Fluid 38 %; Neutrophils,Pleural Fluid 18 %
[2016-10-06] MEDS: traZODone HCL 50 MG TABLET PO PRN (21:30)
[2016-10-06] MEDS: SENNOSIDES/DOCUSATE SODIUM 1 TAB TABLET PO SCH (21:30)
[2016-10-07] MEDS: HYDROmorphone 2 MG/ML SYRINGE IV PRN ×5 (00:49→23:24)
[2016-10-07] MEDS: 0.9 % SODIUM CHLORIDE 1,000 ML IV SCH (05:13)
[2016-10-07] MEDS: 0.9 % SODIUM CHLORIDE 10 ML SYRINGE IV SCH ×3 (05:16→20:55)
[2016-10-07 06:12] LABS: Mean Cell Volume 79.4 fL (80.0-100.0); Mean Corpuscular HGB Conc 29.8 g/dL (31.0-36.0); Mean Corpuscular Hemoglobin 23.7 pg (26.0-34.0); Platelet Count 376 K/mcL (140-440); RBC 3.73 M/mcL (4.00-5.20); Red Cell Distribution Width 20.5 % (11.5-14.5)
[2016-10-07 06:52] LABS: ALT/SGPT < 5 U/l (0-40); Albumin/Globulin Ratio 1.3 (1.0-2.3); Alkaline Phosphatase 72 U/L (39-117); Bilirubin,Direct < 0.2 mg/dL (0.0-0.3); Blood Urea Nitrogen 11 mg/dl (8-23); Gamma Glutamyl Transpeptidase 43 U/L (5-36); Magnesium 2.2 mg/dL (1.6-2.5); Phosphorous 2.9 mg/dL (2.7-4.5); Uric Acid 3.6 mg/dL (2.5-8.0)
[2016-10-07] MEDS: HEPARIN 5,000 UNIT/ML VIAL SQ SCH ×2 (08:28→19:56)
[2016-10-07] MEDS: ATENOLOL 50 MG TABLET PO SCH (08:29)
[2016-10-07] MEDS: CLOPIDOGREL 75 MG TABLET PO SCH (08:29)
[2016-10-07] MEDS: DOCUSATE SODIUM 100 MG CAPSULE PO SCH ×2 (08:29→19:57)
[2016-10-07] MEDS: GABAPENTIN 300 MG CAPSULE PO SCH ×2 (08:29→19:56)
[2016-10-07] MEDS: LEVODOPA PO SCH ×4 (08:30→20:55)
[2016-10-07] MEDS: ENTACAPONE 200 MG PO SCH ×4 (08:30→20:55)
[2016-10-07] MEDS: CARBIDOPA PO SCH ×4 (08:30→20:55)
[2016-10-07] MEDS: PRIMIDONE 50 MG TABLET PO SCH ×2 (08:31→20:00)
[2016-10-07] MEDS: ASPIRIN 81 MG TAB.CHEW PO SCH (08:32)
[2016-10-07] MEDS: PANTOPRAZOLE 40 MG TABLET PO SCH (08:33)
[2016-10-07 08:35] LABS: Anisocytosis 1+ (NONE SEEN); Band Neutrophils % 1 % (0-10); Basophils % (Manual) 2 % (0-2); Eosinophils % (Manual) 2 % (0-7); Howell-Jolly Bodies 1+ (NONE SEEN); Hypochromasia 1+ (NONE SEEN); Lymphocytes % 20 % (15-49); Monocytes % (Manual) 7 % (1-9); Ovalocytes FEW (NONE SEEN); Platelet Estimate NORMAL (NORMAL); RBC Morphology ABNORM (NORMAL); Segmented Neutrophils % 68 % (38-78)
[2016-10-07] MEDS: rOPINIRole 0.25 MG TABLET PO SCH ×3 (08:36→19:56)
[2016-10-07] MEDS: CEFEPIME 2 GM in DEXTROSE 5% IN WATER 50 ML IV SCH (08:44)
[2016-10-07] MEDS: VANCOMYCIN 1,000 MG in 0.9 % SODIUM CHLORIDE 250 ML IV SCH (09:26)
--- NOTE | 2016-10-07 10:28 | Internal Med Progress Note ---
Medical - PN: Subj Patient information: Note initiated : 10/07/16 at 10:25 am Service Date, if different from initiated Date: [] Patient: Wendy Nicole 86 y/o F admitted on 10/04/16 for SOB, Tremors/ Bilateral Pneumonia, UTI, Sepsis. Chief Complaint: [] Interval history: 10/04- patient admitted with severe sepsis/hypoxic respiratory failure aspiration versus nosocomial pneumonia and complicated UTI. critically ill. Admitted to ICU. Hyperkalemia. Advanced Parkinson's disease. long-term resident. [place] II score on admit 18 10/05- extended family conference with family. patient clinically improved. On 4 L oxygen. Bilateral pleural effusion. renal ultrasound negative. continue antibiotic coverage/aspiration precaution. keep nothing by mouth until ST eval. overnight very anxious restless and unable to sleep. No telemetry events. Stable hemodynamics. 10/06- bilateral worsening aspiration pneumonia along with stable pleural effusions. Thoracentesis today. On antibiotic coverage advanced Parkinson's with silent aspiration. Diet as per ST recommendations to start in 24 hours. White count improved from 13.9-8.2. Potassium down to 4. rine cultures negative to date. renal ultrasound right renal cyst. No evidence of obstruction. Bilateral pleural effusion. Echocardiogram EF 50%. pulmonary artery pressure 50 fasting moderate pulmonary hypertension which would explain chronic lymphedema related nonhealing lower extremity ulcer. 10/07-patient doing well. Improved hemodynamics. Afebrile. white count down from 13.9->9. potassium improved from 5.2-4.2. urine cultures negative to date except for lactobacillus. Blood cultures negative. status post 1.1 L thoracentesis. fluid analysis transudate by criteria. await cytology. Likely secondary to pulmonary hypertension and excessive hydrostatic pressure. family at bedside. No other concerns exposed the patient was staffed. Anticipate SNF transfer. Transfer to medical floor today. On 3 L oxygen. Continue aggressive or may toilet/PT OT. Continue antibiotic coverage - Constitutional Vitals: Vital Signs Temp Pulse Resp BP Pulse Ox 97.2 F L 72 18 140/74 98 10/07/16 08:00 10/07/16 08:00 10/07/16 08:00 10/07/16 08:00 10/07/16 08:00 Period Temp Pulse Resp BP Sys/Black Pulse Ox Last 24 Hr 96.9 F-98.5 F 58-94 16-25 99-153/53-88 91-99 Intake and Output 10/06/16 10/07/16 10/07/16 21:59 05:59 13:59 Intake Total 480 / 480 Output Total 1575 / 1575 200 / 200 Balance -1095 / -1095 -200 / -200 Weight 180 lb 12.8 oz Intake & Output: Intake & Output 10/06/16 10/07/16 10/07/16 21:59 05:59 13:59 Intake Total 480 / 480 Output Total 1575 / 1575 200 / 200 Balance -1095 / -1095 -200 / -200 Weight 180 lb 12.8 oz Intake: Oral 480 / 480 Output: Urine Catheter Amount 250 / 250 200 / 200 Void Amount 125 / 125 Para\Thoracentesis 1200 / 1200 General appearance: cooperative, no acute distress Exam: alert oriented nonlabored breathing Much improved resting tremor No anxiety no telemetry events Medical - PN: Obj Da - Labs CBC & Chem 7: 10/07/16 03:45 10/07/16 03:45 Labs: Abnormal Lab Results 10/07/16 10/07/16 10/06/16 03:45 03:45 10:00 RBC 3.73 L Hgb 8.8 L Hct 29.6 L MCV 79.4 L MCH 23.7 L MCHC 29.8 L RDW 20.5 H Seg Neutrophils % Lymphocytes % Monocytes % (Manual) RBC Morphology Abnorm A Polychromasia 1+ A Hypochromasia 1+ A Poikilocytosis Anisocytosis 1+ A Microcytosis 1+ A Ovalocytes Few A [place] Bodies 1+ A Acanthocytes (Sp[place]) RBC Fragments PT 14.6 H Anion Gap Glucose 148 H Calcium 8.3 L Phosphorus GGT 43 H Total Protein 5.3 L Albumin 3.0 L Globulin 10/06/16 10/06/16 10/05/16 04:00 04:00 06:25 RBC 3.40 L Hgb 8.3 L Hct 26.2 L MCV 77.0 L MCH 24.4 L MCHC RDW 19.9 H Seg Neutrophils % Lymphocytes % Monocytes % (Manual) 10 H RBC Morphology Abnorm A Polychromasia Hypochromasia 2+ A Poikilocytosis 2+ A Anisocytosis 2+ A Microcytosis 1+ A Ovalocytes [place] Bodies Acanthocytes (Spur) RBC Fragments 1+ A PT Anion Gap 7.0 L Glucose 175 H 140 H Calcium 7.8 L 7.9 L Phosphorus 2.3 L GGT 40 H 46 H Total Protein 4.6 L 5.8 L Albumin 2.5 L 3.1 L Globulin 2.1 L 10/05/16 06:25 RBC 3.95 L Hgb 9.4 L Hct 31.3 L MCV 79.3 L MCH 23.8 L MCHC 30.0 L RDW 21.1 H Seg Neutrophils % 82 H Lymphocytes % 12 L Monocytes % (Manual) RBC Morphology Abnorm A Polychromasia Hypochromasia 1+ A Poikilocytosis Anisocytosis 2+ A Microcytosis 1+ A Ovalocytes [place] Bodies Acanthocytes (Spur) 1+ A RBC Fragments Occ A PT Anion Gap Glucose Calcium Phosphorus GGT Total Protein Albumin Globulin Meds: Medications Acetaminophen (Tylenol) 650 mg PO Q4-6HP PRN PRN Reason: PAIN/FEVER > 101 Albuterol/Ipratropium (Duoneb) 3 ml NEB Q4HP PRN PRN Reason: Shortness Of Breath Last Admin: 10/05/16 07:42 Dose: 3 ml Aspirin (Aspirin) 81 mg PO DAILY [facility] Last Admin: 10/07/16 08:32 Dose: 81 mg Atenolol (Tenormin) 25 mg PO DAILY [facility] Last Admin: 10/07/16 08:29 Dose: 25 mg Clopidogrel Bisulfate (Plavix) 75 mg PO DAILY [facility] Last Admin: 10/07/16 08:29 Dose: 75 mg Docusate Sodium (Colace) 100 mg PO BID [facility] Last Admin: 10/07/16 08:29 Dose: 100 mg Gabapentin (Neurontin) 600 mg PO BID [facility] Last Admin: 10/07/16 08:29 Dose: 600 mg Heparin Sodium (Porcine) (Heparin) 5,000 unit SQ Q12 [facility] Last Admin: 10/07/16 08:28 Dose: 5,000 unit Hydromorphone HCl (Dilaudid) 0.5 mg IV Q4HP PRN PRN Reason: Pain Last Admin: 10/07/16 00:49 Dose: 0.5 mg Levofloxacin (Levaquin) 750 mg in 150 mls @ 100 mls/hr IV Q48H [facility] Last Infusion: 10/06/16 10:56 Dose: Infused Magnesium Sulfate (Magnesium Sulfate) 2 gm in 50 mls @ 50 mls/hr IV UD PRN PRN Reason: MG = or < 1.7 Acetaminophen (Ofirmev) 1,000 mg in 100 mls @ 200 mls/hr IV Q6HP PRN PRN Reason: PAIN/FEVER > 101 Last Infusion: 10/04/16 20:50 Dose: Infused Cefepime HCl 2 gm/ Dextrose 50 mls @ 100 mls/hr IV DAILY [facility] Last Admin: 10/07/16 08:44 Dose: 100 mls/hr Vancomycin HCl 1,000 mg/ (Sodium Chloride) 250 mls @ 250 mls/hr IV DAILY [facility] Last Admin: 10/07/16 09:26 Dose: 250 mls/hr Sodium Chloride (Sodium Chloride 0.9%) 1,000 mls @ 50 mls/hr IV .Q20H [facility] Last Admin: 10/07/16 05:13 Dose: Not Given Stalevo (Carbidopa 50 Mg - Levodopa 200 Mg - Entacapone 200 Mg) Tablet 1 dose PO QID [facility] Last Admin: 10/07/16 08:30 Dose: 1 dose Ondansetron HCl (Zofran) 4 mg IV Q4-6HP PRN PRN Reason: Nausea And Vomiting Pantoprazole Sodium (Protonix) 40 mg PO QAMAC [facility] Last Admin: 10/07/16 08:33 Dose: 40 mg Potassium Chloride (Klor-Con) 40 meq PO DAILYP PRN PRN Reason: K+ < 3.5 Primidone (Mysoline) 100 mg PO BID [facility] Last Admin: 10/07/16 08:31 Dose: 100 mg Ropinirole HCl (Requip) 0.25 mg PO TID [facility] Last Admin: 10/07/16 08:36 Dose: 0.25 mg Senna/Docusate Sodium (Senna Plus Tablet) 1 tab PO HS [facility] Last Admin: 10/06/16 21:30 Dose: 1 tab Sodium Chloride (Saline Flush) 10 ml IV Q8 [facility] Last Admin: 10/07/16 05:16 Dose: 10 ml Trazodone HCl (Desyrel) 50 mg PO HSP PRN PRN Reason: Insomnia Last Admin: 10/06/16 21:30 Dose: 50 mg Medical - PN: A/P - Time Spent With Patient Total time spent is greater than 50% in coordination of care (as documented) at patient's floor/unit and/or counseling patient: 25 - 35 minutes (1) Aspiration pneumonia due to food (regurgitated) Status: Acute Assessment and plan: * Aspiration pneumonia-clinical improvement noted. Continue diet per ST recommendations. On 2 L oxygen. continue antibiotics for additional 4 days * Hypoxic respiratory failure secondary to above- improving now on 3 L oxygen. Status post thoracentesis * Severe sepsis secondary to combination of above-clinically resolved. white count normalized * Complicated UTI-clinically resolved with antibiotics. Negative renal US * mild hyperkalemia -resolved * bilateral pleural effusion. transudate by criteria post thoracentesis 1.1 L. Await cytology * moderate pulmonary hypertension-With generalized fluid retention including bilateral lower extremity lymphedema * right lower extremity chronic wound. Wound care Dr. Brannon managing * decubitus ulcer-managed by wound care * Advanced Parkinson's disease-continue levodopa plan * ontinue antibiotic for additional 4 days * dysphagia diet/aspiration precautions * transfer to medical floor * lower extremity chronic ulcer/sacral decubitus management per Dr. Brannon Current Visit: Yes Medical - PN: Qual - VTE Deep Vein Thrombosis/Pulmonary Embolism Present on Admission: No
[2016-10-07] MEDS ORDERED: MAGNESIUM SULFATE 2 GM/50 ML BAG IV PRN (10:53)
[2016-10-07] MEDS ORDERED: ACETAMINOPHEN 325 MG TABLET PO PRN (10:53)
[2016-10-07] MEDS ORDERED: ACETAMINOPHEN 1,000 MG/100 ML BOTTLE IV PRN (10:53)
[2016-10-07] MEDS ORDERED: IPRATROPIUM/ALBUTEROL 3 ML AMPUL.NEB NEB PRN (10:53)
[2016-10-07] MEDS ORDERED: traZODone HCL 50 MG TABLET PO PRN (10:53)
[2016-10-07] MEDS ORDERED: ONDANSETRON 4 MG/2 ML VIAL IV PRN (10:53)
[2016-10-07] MEDS ORDERED: POTASSIUM CHLORIDE 20 MEQ PACKET PO PRN (10:53)
--- NOTE | 2016-10-07 14:40 | General Surgery Progress Note ---
Subjective Narrative: Note initiated : 10/07/16 at 2:29 pm Service Date, if different from initiated Date: [] Patient: Wendy Nicole 86 y/o F admitted on 10/04/16 for SOB, Tremors/ Bilateral Pneumonia, UTI, Sepsis. Chief Complaint: [] 10/07/2016: 86 yo/F, vitals reviewed: VSS, patient afebrile. Stage IV wound to RLE. Dressings to right lower lateral leg & coccyx changed by Laura Yoo RN. Right lower leg wound, patient experiences pain with dressing change which subsides when dressing completed. RLE improving with demarcating, eschar at the base, periwound is clean. Coccyx:Grade II wound with clear periwound with peeling epidermis at the edges , periwound non-tender. Objective Temp Pulse Resp BP Pulse Ox 97.5 F L 78 20 132/70 100 10/07/16 12:00 10/07/16 12:00 10/07/16 12:00 10/07/16 12:00 10/07/16 12:00 10/07/2016: AVSS, JACINTA no interval changes. Wounds RLE and Coccyx evaluated and treated at bedside. - Additional Data Intake & Output - Last 24 hours: Intake & Output 10/05/16 10/06/16 10/07/16 10/08/16 05:59 05:59 05:59 05:59 Intake Total 1200 / 2350 1427 / 1427 1697 / 1697 100 / 100 Output Total 1150 / 1150 850 / 850 2075 / 2075 Balance 50 / 1200 577 / 577 -378 / -378 100 / 100 Weight 179 lb 8 oz 173 lb 4.8 oz 180 lb 12.8 oz - Labs 10/07/16 03:45 10/07/16 03:45 Diabetes panel 10/07/16 Range/Units 03:45 Sodium 135 (133-145) mmol/L Potassium 4.2 (3.3-5.1) mmol/L Chloride 99 (96-108) mmol/L Carbon Dioxide 28 (22-30) mmol/L BUN 11 (8-23) mg/dl Creatinine 0.7 (0.6-1.1) mg/dl Glucose 148 H (70-105) mg/dL Calcium 8.3 L (8.6-10.4) mg/dl AST 15 (0-37) U/l ALT < 5 (0-40) U/l Alkaline Phosphatase 72 (39-117) U/L Total Protein 5.3 L (5.9-8.4) gm/dL Albumin 3.0 L (3.2-5.2) gm/dL Triglycerides 143 (<150) mg/dl Calcium panel 10/07/16 Range/Units 03:45 Calcium 8.3 L (8.6-10.4) mg/dl Phosphorus 2.9 (2.7-4.5) mg/dL Albumin 3.0 L (3.2-5.2) gm/dL Pituitary panel 10/07/16 Range/Units 03:45 Sodium 135 (133-145) mmol/L Potassium 4.2 (3.3-5.1) mmol/L Chloride 99 (96-108) mmol/L Carbon Dioxide 28 (22-30) mmol/L BUN 11 (8-23) mg/dl Creatinine 0.7 (0.6-1.1) mg/dl Glucose 148 H (70-105) mg/dL Calcium 8.3 L (8.6-10.4) mg/dl Adrenal panel 10/07/16 Range/Units 03:45 Sodium 135 (133-145) mmol/L Potassium 4.2 (3.3-5.1) mmol/L Chloride 99 (96-108) mmol/L Carbon Dioxide 28 (22-30) mmol/L BUN 11 (8-23) mg/dl Creatinine 0.7 (0.6-1.1) mg/dl Glucose 148 H (70-105) mg/dL Calcium 8.3 L (8.6-10.4) mg/dl Total Bilirubin 0.3 (0.0-1.0) mg/dL AST 15 (0-37) U/l ALT < 5 (0-40) U/l Alkaline Phosphatase 72 (39-117) U/L Total Protein 5.3 L (5.9-8.4) gm/dL Albumin 3.0 L (3.2-5.2) gm/dL Medical - PN: A/P - Time Spent With Patient Total time spent is greater than 50% in coordination of care (as documented) at patient's floor/unit and/or counseling patient: Selective debridement performed to RLE and Coccyx, patient tolerated well. 15 - 24 minutes
[2016-10-07] MEDS ORDERED: SENNOSIDES/DOCUSATE SODIUM 1 TAB TABLET PO SCH (21:00)
[2016-10-08] MEDS: 0.9 % SODIUM CHLORIDE 10 ML SYRINGE IV SCH ×3 (05:47→20:33)
[2016-10-08 06:03] LABS: ALT/SGPT < 5 U/l (0-40); Albumin 3.1 gm/dL (3.2-5.2); Albumin/Globulin Ratio 1.2 (1.0-2.3); Alkaline Phosphatase 81 U/L (39-117); Bilirubin,Direct < 0.2 mg/dL (0.0-0.3); Blood Urea Nitrogen 10 mg/dl (8-23); Gamma Glutamyl Transpeptidase 43 U/L (5-36); Phosphorous 2.5 mg/dL (2.7-4.5); Uric Acid 3.1 mg/dL (2.5-8.0)
[2016-10-08 06:04] LABS: Mean Cell Volume 77.4 fL (80.0-100.0); Mean Corpuscular HGB Conc 30.9 g/dL (31.0-36.0); Platelet Count 358 K/mcL (140-440); RBC 3.97 M/mcL (4.00-5.20); Red Cell Distribution Width 19.9 % (11.5-14.5)
[2016-10-08] MEDS: HYDROmorphone 2 MG/ML SYRINGE IV PRN (07:12)
[2016-10-08] MEDS ORDERED: PANTOPRAZOLE 40 MG TABLET PO SCH (07:30)
[2016-10-08 07:58] LABS: Anisocytosis 2+ (NONE SEEN); Band Neutrophils % 1 % (0-10); Eosinophils % (Manual) 1 % (0-7); Hypochromasia 2+ (NONE SEEN); Lymphocytes % 21 % (15-49); Monocytes % (Manual) 3 % (1-9); Platelet Estimate NORMAL (NORMAL); RBC Morphology ABNORMAL (NORMAL); Segmented Neutrophils % 74 % (38-78)
[2016-10-08] MEDS: GABAPENTIN 300 MG CAPSULE PO SCH ×2 (08:32→20:30)
[2016-10-08] MEDS: DOCUSATE SODIUM 100 MG CAPSULE PO SCH ×2 (08:35→20:31)
[2016-10-08] MEDS: HEPARIN 5,000 UNIT/ML VIAL SQ SCH ×2 (08:35→20:32)
[2016-10-08] MEDS: PRIMIDONE 50 MG TABLET PO SCH ×2 (08:35→20:31)
[2016-10-08] MEDS: rOPINIRole 0.25 MG TABLET PO SCH ×3 (08:38→20:30)
[2016-10-08] MEDS ORDERED: ATENOLOL 50 MG TABLET PO SCH (09:00)
[2016-10-08] MEDS ORDERED: CLOPIDOGREL 75 MG TABLET PO SCH (09:00)
[2016-10-08] MEDS ORDERED: ASPIRIN 81 MG TAB.CHEW PO SCH (09:00)
[2016-10-08] MEDS ORDERED: LEVOFLOXACIN 750 MG/150 ML BAG IV SCH (09:00)
--- NOTE | 2016-10-08 11:02 | Internal Med Progress Note ---
Medical - PN: Subj Patient information: Note initiated : 10/08/16 at 10:59 am Service Date, if different from initiated Date: [] Patient: Wendy Nicole 86 y/o F admitted on 10/04/16 for SOB, Tremors/ Bilateral Pneumonia, UTI, Sepsis. Chief Complaint: [] Interval history: 10/04- patient admitted with severe sepsis/hypoxic respiratory failure aspiration versus nosocomial pneumonia and complicated UTI. critically ill. Admitted to ICU. Hyperkalemia. Advanced Parkinson's disease. [facility] resident. [place] II score on admit 18 10/05- extended family conference with family. patient clinically improved. On 4 L oxygen. Bilateral pleural effusion. renal ultrasound negative. continue antibiotic coverage/aspiration precaution. keep nothing by mouth until ST eval. overnight very anxious restless and unable to sleep. No telemetry events. Stable hemodynamics. 10/06- bilateral worsening aspiration pneumonia along with stable pleural effusions. Thoracentesis today. On antibiotic coverage advanced Parkinson's with silent aspiration. Diet as per ST recommendations to start in 24 hours. White count improved from 13.9-8.2. Potassium down to 4. rine cultures negative to date. renal ultrasound right renal cyst. No evidence of obstruction. Bilateral pleural effusion. Echocardiogram EF 50%. pulmonary artery pressure 50 fasting moderate pulmonary hypertension which would explain chronic lymphedema related nonhealing lower extremity ulcer. 10/07-patient doing well. Improved hemodynamics. Afebrile. white count down from 13.9->9. potassium improved from 5.2-4.2. urine cultures negative to date except for lactobacillus. Blood cultures negative. status post 1.1 L thoracentesis. fluid analysis transudate by criteria. await cytology. Likely secondary to pulmonary hypertension and excessive hydrostatic pressure. family at bedside. No other concerns exposed the patient was staffed. Anticipate SNF transfer. Transfer to medical floor today. On 3 L oxygen. Continue aggressive or may toilet/PT OT. Continue antibiotic coverage 10/08- patient doing well. No overnight events fever chills nausea vomiting CP/ SOB. No concerns per staff. Much improved tremors. Transferring to medical floor. Anticipate SNF transfer to floor [place] in 24 hours. Continue antibiotic coverage. On 2 L oxygen. Continue physical therapy/pulmonary toilet. On diet per ST recommendations. Ongoing wound care. - Constitutional Vitals: Vital Signs Temp Pulse Resp BP Pulse Ox 97.3 F L 74 22 146/63 90 10/08/16 08:00 10/08/16 08:00 10/08/16 04:00 10/08/16 08:00 10/08/16 08:00 Period Temp Pulse Resp BP Sys/Black Pulse Ox Last 24 Hr 96.7 F-97.9 F 60-78 18-22 130-168/57-74 90-100 Intake and Output 10/07/16 10/08/16 10/08/16 21:59 05:59 13:59 Intake Total 490 / 490 265 / 265 Output Total 300 / 300 550 / 550 Balance 190 / 190 -285 / -285 Weight 173 lb Intake & Output: Intake & Output 10/07/16 10/08/16 10/08/16 21:59 05:59 13:59 Intake Total 490 / 490 265 / 265 Output Total 300 / 300 550 / 550 Balance 190 / 190 -285 / -285 Weight 173 lb Intake: IV 250 / 250 Sodium Chloride 0.9% 250 250 / 250 ml @ 250 mls/hr IV DAILY NADIYA with Vancomycin 1,000 mg Rx#:[id number] Oral 240 / 240 265 / 265 Output: Urine Catheter Amount 300 / 300 550 / 550 Other: Meal Dinner Percent of Meal Consumed 40 Feeding Ability Needs Supervision # Bowel Movements 1 General appearance: cooperative, no acute distress Exam: alert oriented nonlabored breathing no fever chills Nondistended abdomen Resting tremor Medical - PN: Obj Da - Labs CBC & Chem 7: 10/08/16 03:50 10/08/16 03:50 Labs: Abnormal Lab Results 10/08/16 10/08/16 10/07/16 03:50 03:50 03:45 RBC 3.97 L Hgb 9.5 L Hct 30.7 L MCV 77.4 L MCH 24.0 L MCHC 30.9 L RDW 19.9 H Monocytes % (Manual) RBC Morphology Polychromasia Few A Hypochromasia 2+ A Poikilocytosis 2+ A Anisocytosis 2+ A Microcytosis 1+ A Ovalocytes [place] Bodies RBC Fragments PT Anion Gap Glucose 131 H 148 H Calcium 8.3 L 8.3 L Phosphorus 2.5 L GGT 43 H 43 H Total Protein 5.6 L 5.3 L Albumin 3.1 L 3.0 L Globulin Triglycerides 156 H 10/07/16 10/06/16 10/06/16 03:45 10:00 04:00 RBC 3.73 L Hgb 8.8 L Hct 29.6 L MCV 79.4 L MCH 23.7 L MCHC 29.8 L RDW 20.5 H Monocytes % (Manual) RBC Morphology Abnorm A Polychromasia 1+ A Hypochromasia 1+ A Poikilocytosis Anisocytosis 1+ A Microcytosis 1+ A Ovalocytes Few A [place] Bodies 1+ A RBC Fragments PT 14.6 H Anion Gap 7.0 L Glucose 175 H Calcium 7.8 L Phosphorus 2.3 L GGT 40 H Total Protein 4.6 L Albumin 2.5 L Globulin 2.1 L Triglycerides 10/06/16 04:00 RBC 3.40 L Hgb 8.3 L Hct 26.2 L MCV 77.0 L MCH 24.4 L MCHC RDW 19.9 H Monocytes % (Manual) 10 H RBC Morphology Abnorm A Polychromasia Hypochromasia 2+ A Poikilocytosis 2+ A Anisocytosis 2+ A Microcytosis 1+ A Ovalocytes [place] Bodies RBC Fragments 1+ A PT Anion Gap Glucose Calcium Phosphorus GGT Total Protein Albumin Globulin Triglycerides Meds: Medications Acetaminophen (Tylenol) 650 mg PO Q4-6HP PRN PRN Reason: PAIN/FEVER > 101 Last Admin: 10/07/16 21:30 Dose: 650 mg Albuterol/Ipratropium (Duoneb) 3 ml NEB Q4HP PRN PRN Reason: Shortness Of Breath Aspirin (Aspirin) 81 mg PO DAILY [facility] Last Admin: 10/08/16 08:35 Dose: 81 mg Atenolol (Tenormin) 25 mg PO DAILY [facility] Last Admin: 10/08/16 08:34 Dose: 25 mg Clopidogrel Bisulfate (Plavix) 75 mg PO DAILY [facility] Last Admin: 10/08/16 08:34 Dose: 75 mg Docusate Sodium (Colace) 100 mg PO BID [facility] Last Admin: 10/08/16 08:35 Dose: 100 mg Gabapentin (Neurontin) 600 mg PO BID [facility] Last Admin: 10/08/16 08:32 Dose: 600 mg Heparin Sodium (Porcine) (Heparin) 5,000 unit SQ Q12 [facility] Last Admin: 10/08/16 08:35 Dose: 5,000 unit Hydromorphone HCl (Dilaudid) 0.5 mg IV Q4HP PRN PRN Reason: Pain Last Admin: 10/08/16 07:12 Dose: 0.5 mg Levofloxacin (Levaquin) 750 mg in 150 mls @ 100 mls/hr IV Q48H [facility] Last Admin: 10/08/16 09:50 Dose: 100 mls/hr Magnesium Sulfate (Magnesium Sulfate) 2 gm in 50 mls @ 50 mls/hr IV UD PRN PRN Reason: MG = or < 1.7 Acetaminophen (Ofirmev) 1,000 mg in 100 mls @ 200 mls/hr IV Q6HP PRN PRN Reason: PAIN/FEVER > 101 Last Infusion: 10/07/16 11:54 Dose: Infused Stalevo (Carbidopa 50 Mg - Levodopa 200 Mg - Entacapone 200 Mg) Tablet 1 dose PO QID [facility] Last Admin: 10/07/16 20:55 Dose: 1 dose Ondansetron HCl (Zofran) 4 mg IV Q4-6HP PRN PRN Reason: Nausea And Vomiting Pantoprazole Sodium (Protonix) 40 mg PO QAMAC [facility] Last Admin: 10/08/16 08:41 Dose: 40 mg Potassium Chloride (Klor-Con) 40 meq PO DAILYP PRN PRN Reason: K+ < 3.5 Primidone (Mysoline) 100 mg PO BID [facility] Last Admin: 10/08/16 08:35 Dose: 100 mg Ropinirole HCl (Requip) 0.25 mg PO TID [facility] Last Admin: 10/08/16 08:38 Dose: 0.25 mg Senna/Docusate Sodium (Senna Plus Tablet) 1 tab PO HS [facility] Last Admin: 10/07/16 20:01 Dose: Not Given Sodium Chloride (Saline Flush) 10 ml IV Q8 [facility] Last Admin: 10/08/16 05:47 Dose: 10 ml Trazodone HCl (Desyrel) 50 mg PO HSP PRN PRN Reason: Insomnia Last Admin: 10/07/16 21:50 Dose: 50 mg Medical - PN: A/P - Time Spent With Patient Total time spent is greater than 50% in coordination of care (as documented) at patient's floor/unit and/or counseling patient: 15 - 24 minutes (1) Aspiration pneumonia due to food (regurgitated) Status: Acute Assessment and plan: * Aspiration pneumonia-clinically resolved. Continue diet per ST /aspiration precautions. continue ABX for 3 days. * Hypoxic respiratory failure secondary to above- On 3 L oxygen. Status post thoracentesis 1.1 L * Bilateral pleural effusion. tPost thoracentesis 1.1 L- transudate. Await cytology * Severe sepsis secondary to combination of above-clinically resolved. white count normalized * Complicated UTI-clinically resolved with antibiotics. Negative renal US * Moderate pulmonary hypertension-With generalized fluid retention including bilateral lower extremity lymphedema * Right lower extremity chronic wound. Dr. Brannon managing * decubitus ulcer-managed by wound care * Advanced Parkinson's disease-continue levodopa plan * Continue antibiotic for additional 3 days * transfer to medical floor * dysphagia diet/aspiration precautions * lower extremity chronic ulcer/sacral decubitus management per Dr. Brannon * SNF transfer [email or web address] Current Visit: Yes Medical - PN: Qual - VTE Deep Vein Thrombosis/Pulmonary Embolism Present on Admission: No
[2016-10-08] MEDS ORDERED: traZODone HCL 50 MG TABLET PO PRN (11:13)
[2016-10-08] MEDS ORDERED: ACETAMINOPHEN 1,000 MG/100 ML BOTTLE IV PRN (11:13)
[2016-10-08] MEDS ORDERED: ONDANSETRON 4 MG/2 ML VIAL IV PRN (11:13)
[2016-10-08] MEDS ORDERED: IPRATROPIUM/ALBUTEROL 3 ML AMPUL.NEB NEB PRN (11:13)
[2016-10-08] MEDS ORDERED: MAGNESIUM SULFATE 2 GM/50 ML BAG IV PRN (11:13)
[2016-10-08] MEDS ORDERED: ACETAMINOPHEN 325 MG TABLET PO PRN (11:13)
[2016-10-08] MEDS ORDERED: HYDROmorphone 2 MG/ML SYRINGE IV PRN (11:13)
[2016-10-08] MEDS ORDERED: POTASSIUM CHLORIDE 20 MEQ PACKET PO PRN (11:13)
[2016-10-08] MEDS: ENTACAPONE 200 MG PO SCH ×4 (12:43→20:31)
[2016-10-08] MEDS: LEVODOPA PO SCH ×4 (12:43→20:31)
[2016-10-08] MEDS: CARBIDOPA PO SCH ×4 (12:43→20:31)
--- NOTE | 2016-10-08 15:21 | Non-GYN Cytology Report ---
NON HOME TEACHING GRADES 9 THRU 12 TEACHER SPECIMEN NG DX CATEGORY Negative MICROSCOPIC DIAGNOSIS PLEURAL FLUID, THORACENTESIS: -- CHRONIC INFLAMMATION AND REACTIVE MESOTHELIAL CELLS. -- NEGATIVE FOR ATYPICAL AND MALIGNANT CELLS. (DMT:sln) MICROSCOPIC DESCRIPTION A thinprep monolayer slide, Mobley Giemsa stained cytospin slide, Diff Quik stained cytospin slide and an H/E stained cytospin slide are reviewed. The preparation is paucicellular containing predominately lymphocytes, macrophages and rare reactive mesothelial cells. Few red blood cells and neutrophils are also present within the background. No atypical or malignant cells are identified. (DMT:sln) EXTERNAL COMMENT Electronically Signed by: Felix Perez M.D.
[2016-10-08] MEDS ORDERED: SENNOSIDES/DOCUSATE SODIUM 1 TAB TABLET PO SCH (21:00)
[2016-10-09 06:29] LABS: Mean Cell Volume 78.1 fL (80.0-100.0); Mean Corpuscular HGB Conc 29.9 g/dL (31.0-36.0); Mean Corpuscular Hemoglobin 23.3 pg (26.0-34.0); Platelet Count 371 K/mcL (140-440); RBC 3.93 M/mcL (4.00-5.20); Red Cell Distribution Width 21.7 % (11.5-14.5)
[2016-10-09 06:50] LABS: ALT/SGPT < 5 U/l (0-40); Albumin 2.8 gm/dL (3.2-5.2); Albumin/Globulin Ratio 1.2 (1.0-2.3); Alkaline Phosphatase 76 U/L (39-117); Bilirubin,Direct < 0.2 mg/dL (0.0-0.3); Blood Urea Nitrogen 6 mg/dl (8-23); Gamma Glutamyl Transpeptidase 38 U/L (5-36); Magnesium 1.9 mg/dL (1.6-2.5); Phosphorous 2.2 mg/dL (2.7-4.5)
[2016-10-09] MEDS ORDERED: PANTOPRAZOLE 40 MG TABLET PO SCH (07:30)
[2016-10-09 08:04] LABS: Anisocytosis 1+ (NONE SEEN); Basophils % (Manual) 1 % (0-2); Eosinophils % (Manual) 2 % (0-7); Hypochromasia 1+ (NONE SEEN); Lymphocytes % 15 % (15-49); Monocytes % (Manual) 5 % (1-9); Platelet Estimate NORMAL (NORMAL); RBC Morphology ABNORM (NORMAL); Segmented Neutrophils % 77 % (38-78)
[2016-10-09] MEDS ORDERED: CLOPIDOGREL 75 MG TABLET PO SCH (09:00)
[2016-10-09] MEDS ORDERED: ATENOLOL 50 MG TABLET PO SCH (09:00)
[2016-10-09] MEDS ORDERED: ASPIRIN 81 MG TAB.CHEW PO SCH (09:00)
--- NOTE | 2016-10-09 10:01 | Discharge Summary ---
Medical - DS: Prov Patient information: Note initiated : 10/09/16 at 9:51 am Service Date, if different from initiated Date: [] Patient: Wendy Nicole 86 y/o F admitted on 10/04/16 for SOB, Tremors/ Bilateral Pneumonia, UTI, Sepsis. Chief Complaint: [] Date of admission: 10/04/16 17:08 Discharge date: 10/09/16 Primary care physician: [f_Reg Prim Care Provider] Consults: 10/04/16 17:38 Consult to Physician [CONS] Routine Comment: Consulting Provider: Chandu Brannon Reason For Exam: Physician to Consult 10/06/16 09:06 Consult to Physician [CONS] Routine Comment: Consulting Provider: [facility] Reason For Exam: Physician to Consult Medical - DS: Meds - Discharge Medications Prescriptions: Levofloxacin [Levaquin] 750 mg PO DAILY #3 tablet Active and Home Medications: Home Medications Acetaminophen [Tylenol] 650 mg PO TID #180 tablet 03/05/15 [Rx Confirmed Last Taken Unknown] Aspirin [Adult Low Dose Aspirin EC] 81 mg PO DAILY 03/05/15 [History Confirmed 10/04/16 Last Taken Unknown] Atenolol [Tenormin] 25 mg PO DAILY 03/05/15 [History Confirmed 10/04/16 Last Taken Unknown] Gabapentin [Neurontin] 600 mg PO TID 03/05/15 [History Confirmed 10/04/16 Last Taken Unknown] Primidone [Mysoline] 100 mg PO BID 03/05/15 [History Confirmed 10/04/16 Last Taken Unknown] Ciprofloxacin [Cipro] 500 mg PO BID 10/04/16 [History Confirmed 10/04/16 Last Taken Unknown] L.acidoph,Paracasei, B.lactis [Probiotic] 1 each PO DAILY 10/04/16 [History Confirmed 10/04/16 Last Taken Unknown] Pantoprazole [Protonix] 40 mg PO HS 10/04/16 [History Confirmed 10/04/16 Last Taken Unknown] Polyethylene Glycol 3350 [Miralax] 17 gm PO DAILYP PRN 10/04/16 [History Confirmed 10/05/16 Last Taken Unknown] Clopidogrel Bisulfate [Plavix] 75 mg PO DAILY 10/05/16 [History Confirmed Last Taken Unknown] Stalevo (Carbidopa 50 Mg-Levodopa 200 Mg-Entacapone 200 Mg) 1 tab PO QIDP [History Confirmed 10/05/16 Last Taken Unknown] rOPINIRole HCL [Requip] 0.25 mg PO TID 10/05/16 [History Confirmed 10/05/16 Last Taken Unknown] Medical - DS: Hosp Hospital course: ISCHARGE DIAGNOSIS * Aspiration pneumonia-clinically resolved. Continue diet per ST /aspiration precautions. Continue Levaquin for 3 days. Transferring to SNF for continued post hospitalization rehabilitation * Hypoxic respiratory failure secondary to above- On 2 L oxygen. Wean as tolerated. * Severe sepsis secondary to combination of above-clinically resolved. white count normalized * Complicated UTI-clinically resolved with antibiotics. Negative renal US * Bilateral pleural effusion. Post thoracentesis 1.1 L- transudate. negative cytology * Moderate pulmonary hypertension-With generalized fluid retention including bilateral lower extremity lymphedema * Right lower extremity chronic wound. continue wound care management at [facility] as per Dr. Brannon's recommendations * decubitus ulcer-managed by wound care. continue decubitus care at SNF * Advanced Parkinson's disease-continue levodopa [facility] Mr. Nicole is a 86 year old F admitted with sepsis and pneumonia 10/04- patient admitted with severe sepsis/hypoxic respiratory failure aspiration versus nosocomial pneumonia and complicated UTI. critically ill. Admitted to ICU. Hyperkalemia. Advanced Parkinson's disease. detention resident. [place] II score on admit 18 10/05- extended family conference with family. patient clinically improved. On 4 L oxygen. Bilateral pleural effusion. renal ultrasound negative. continue antibiotic coverage/aspiration precaution. keep nothing by mouth until ST eval. overnight very anxious restless and unable to sleep. No telemetry events. Stable hemodynamics. 10/06- bilateral worsening aspiration pneumonia along with stable pleural effusions. Thoracentesis today. On antibiotic coverage advanced Parkinson's with silent aspiration. Diet as per ST recommendations to start in 24 hours. White count improved from 13.9-8.2. Potassium down to 4. rine cultures negative to date. renal ultrasound right renal cyst. No evidence of obstruction. Bilateral pleural effusion. Echocardiogram EF 50%. pulmonary artery pressure 50 fasting moderate pulmonary hypertension which would explain chronic lymphedema related nonhealing lower extremity ulcer. 10/07-patient doing well. Improved hemodynamics. Afebrile. white count down from 13.9->9. potassium improved from 5.2-4.2. urine cultures negative to date except for lactobacillus. Blood cultures negative. status post 1.1 L thoracentesis. fluid analysis transudate by criteria. await cytology. Likely secondary to pulmonary hypertension and excessive hydrostatic pressure. family at bedside. No other concerns exposed the patient was staffed. Anticipate SNF transfer. Transfer to medical floor today. On 3 L oxygen. Continue aggressive or may toilet/PT OT. Continue antibiotic coverage 10/08- patient doing well. No overnight events fever chills nausea vomiting CP/ SOB. No concerns per staff. Much improved tremors. Transferring to medical floor. Anticipate SNF transfer to floor [place] in 24 hours. Continue antibiotic coverage. On 2 L oxygen. Continue physical therapy/pulmonary toilet. On diet per ST recommendations. Ongoing wound care. 10/09-patient doing remarkably better. Ongoing physical therapy. No overnight fever chills nausea vomiting or concerns per staff. Transferring to SNF for continued post hospitalization rehabilitation, detailed discharge instructions as below. Continue Levaquin for additional 3 days. Discharge diagnosis: aspiration pneumonia/complicated UTI /sepsis - Time Spent with Patient Total time spent providing and/or coordinating discharge services: Greater than 30 minutes Medical - DS: Exam - Constitutional Vitals: Vital Signs Temp Pulse Pulse Resp BP BP BP 10/09/16 08:12 10/09/16 08:10 80 16 10/09/16 06:43 97.5 F L 18 180/72 10/09/16 03:35 98.5 F 77 20 147/66 10/09/16 00:00 98.0 F 76 18 153/73 10/08/16 20:00 97.0 F L 68 16 161/83 10/08/16 16:00 97.1 F L 73 16 162/62 10/08/16 12:00 97.7 F 99 H 20 128/74 Pulse Ox 10/09/16 08:12 90 10/09/16 08:10 88 L 10/09/16 06:43 90 10/09/16 03:35 92 10/09/16 00:00 91 10/08/16 20:00 94 10/08/16 16:00 10/08/16 12:00 99 Intake and Output 10/08/16 10/09/16 10/09/16 21:59 05:59 13:59 Intake Total 0 / 0 Output Total 426 / 426 Balance -426 / -426 -3 / -3 Intake: Oral 0 / 0 Output: Urine Catheter Amount 425 / 425 # of times incontinent of urine Other: Meal Nourishment/Supplement Percent of Meal Consumed Refused Feeding Ability Total Assistance # Bowel Movements 1 Weight 176 lb Medical - DS: Data Labs on day of discharge: Labs from last 24 hours 10/09/16 10/09/16 04:40 04:40 WBC 10.2 RBC 3.93 L Hgb 9.2 L Hct 30.7 L MCV 78.1 L MCH 23.3 L MCHC 29.9 L RDW 21.7 H Plt Count 371 MPV 8.0 Total Counted 100 Seg Neutrophils % 77 Band Neutrophils % Not Reportable Lymphocytes % 15 Monocytes % (Manual) 5 Eosinophils % (Manual) 2 Basophils % (Manual) 1 Platelet Estimate Normal RBC Morphology Abnorm A Hypochromasia 1+ A Anisocytosis 1+ A Microcytosis 1+ A RBC Fragments Occ A Sodium 140 Potassium 3.3 Chloride 99 Carbon Dioxide 30 Anion Gap 11.0 BUN 6 L Creatinine 0.5 L GFR Calculation 88 Glucose 115 H Uric Acid 3.0 Calcium 8.1 L Phosphorus 2.2 L Magnesium 1.9 Total Bilirubin 0.4 Direct Bilirubin < 0.2 GGT 38 H AST 13 ALT < 5 Alkaline Phosphatase 76 Lactate Dehydrogenase 210 Total Protein 5.2 L Albumin 2.8 L Globulin 2.4 Albumin/Globulin Ratio 1.2 Triglycerides 140 Preliminary micro results at discharge 10/06/16 14:55 Anaerobic Culture - Preliminary Pleural Fluid Medical - DS: A/P - Patient/Caregiver Discharge Instructions Activity: as per physical therapy Diet: Regular Diet Additional Instructions: Follow-up PCP in 5 days continue wound management per wound care recommendations including outpatient follow-up appointments I recommend SNF physician to check CBC BMP UA as a posthospital follow-up and Chest x-ray in 1 week. Antibiotics for additional 3 days decubitus care oxygen @ to keep sats around 94 and wean as tolerated Continue aggressive bowel regimen to prevent constipation Continue fall precautions in light of advanced Parkinson's disease Continue aggressive PT OT/ST treatments at [facility] All meals on chair sitting upright at 90 degrees to prevent aspiration,continue dysphagia diet as per ST recommendations Return to ER if worsening fever chills shortness of breath, diarrhea, bleeding Review risk and side effect profile of medications including antibiotics. Side effect may include mild to severe reaction including rash, diarrhea, cdiff and even which can be prevented by close follow-up with PCP and monitoring for side effects Refrain from smoking and alcohol Continue diet per speech therapy recommendations and activity as advised Discussed importance of medication adherence Please review medication list with patient prior to discharge Please schedule follow-up with PCP/Providers prior to discharge and provide printouts Portions of this chart may have been created with [employer] voice recognition software. Occasional wrong-word or ?sound-like? substitutions may have occurred due to the inherent limitations of voice recognition software. Please read the chart carefully and recognize, using context, where the substitutions have occurred. CC- PCP Prescriptions: Levofloxacin [Levaquin] 750 mg PO DAILY #3 tablet - Problem Maintenance (1) Aspiration pneumonia due to food (regurgitated) Status: Acute - Follow up Plan Follow up with: Malu Werner MD [Primary Care Provider] - Disposition: [facility] Prognosis: Good Rehab Potential: Fair I certify that the patient requires SNF services: Yes Overall status at discharge: patient is back to baseline Medical - DS: Qual - VTE Deep Vein Thrombosis/Pulmonary Embolism Present on Admission: No
[2016-10-09] MEDS ORDERED: POTASSIUM CHLORIDE 20 MEQ/15 ML ML PT SCH (10:15)
[2016-10-09] MEDS: 0.9 % SODIUM CHLORIDE 10 ML SYRINGE IV SCH (10:47)
[2016-10-09] MEDS ORDERED: PNEUMOCOCCAL 23-VAL P-SAC VAC 0.5 ML VIAL IM ONE (11:00)
[2016-10-09] MEDS: DOCUSATE SODIUM 100 MG CAPSULE PO SCH (11:51)
[2016-10-09] MEDS: PRIMIDONE 50 MG TABLET PO SCH (11:52)
[2016-10-09] MEDS: HEPARIN 5,000 UNIT/ML VIAL SQ SCH (11:52)
[2016-10-09] MEDS: CARBIDOPA PO SCH (11:53)
[2016-10-09] MEDS: LEVODOPA PO SCH (11:53)
[2016-10-09] MEDS: ENTACAPONE 200 MG PO SCH (11:53)
[2016-10-09] MEDS: GABAPENTIN 300 MG CAPSULE PO SCH (11:53)
[2016-10-09] MEDS: rOPINIRole 0.25 MG TABLET PO SCH (11:58)
[2016-10-09] MEDS ORDERED: NEUTRA PHOS 1 PACKET PO SCH (21:00)
[2016-10-10] MEDS ORDERED: LEVOFLOXACIN 750 MG/150 ML BAG IV SCH (09:00)
== END 2016-10-09 11:30 | DRG 871 ==
LOC: ED 12:44 → ICU 15:12 → MEDSUR 10-08 14:24
PROVIDERS: ADMIT Internal Medicine; ATTEND Internal Medicine